=== PATIENT | female | born 1995 | race Caucasian/White ===

== ENCOUNTER → 2020-12-11 16:24 | Outpatient (CLI) | payer OTHER, MEDICAID, SELFPAY ==
[2020-12-12 09:53] LABS: HIV - WCH Non-Reactive (Nonreactive); Hepatitis B Surface Antibody Non-Reactive; Hepatitis C Antibody Non-Reactive (Nonreactive); Syphilis Antibodies Non-reactive
[2020-12-19 08:42] LABS: HPV APTIMA, High Risk Positive (Negative); HPV Reflexed? YES, CHARGE PATIENT
== END ==
PROVIDERS: Visit Provider Obstetrics & Gynecology
DX: Z11.3 Encounter for screening for infections with a predominantly sexual mode of transmission (principal); Z12.4 Encounter for screening for malignant neoplasm of cervix
CPT/HCPCS: 36415; 86703; 86706; 86803; 87624; 88175; G0145

== ENCOUNTER 2022-01-01 10:41 | Outpatient (CLI) | payer MEDICAID, SELFPAY ==
[2022-01-06 21:26] LABS: HPV Reflexed? NOT INDICATED
== END 2022-01-01 23:59 | disposition home or self-care (01) ==
LOC: LABSPEC 10:43
PROVIDERS: Visit Provider Obstetrics & Gynecology
DX: Z12.4 Encounter for screening for malignant neoplasm of cervix (principal)
CPT/HCPCS: 88175; G0145

== ENCOUNTER → 2023-04-05 | Outpatient (CLI) | payer MEDICAID, SELFPAY ==
[2023-04-05 15:47] LABS: Absolute Lymphocyte Count 2.48 X10^3/uL (0.83-4.51); Absolute Neutrophil Count 7.7 X10^3/uL (2.0-7.7); Basophil# 0.06 X10^3/uL; Basophil% 0.5 % (0-1); Eosinophil# 0.06 X10^3/uL; Eosinophils% 0.5 % (0-5); Hematocrit 40.3 % (37-47); Hemoglobin 13.6 g/dL (12.0-15.0); Lymphocyte # 2.48 X10^3/ul (0.83-4.51); Lymphocyte % 22.3 % (19-41); Mean Corp Hgb Conc 33.7 g/dL (32-36); Mean Corpuscular Hgb 30.4 pg (27.0-32.0); Mean Corpuscular Volume 90.2 fL (81-99); Mean Platelet Vol. 10.5 fl (6.2-12.0); Monocyte% 7.2 % (0-10); NRBC Flagged by Analyzer 0 % (0-5); Neutrophil # 7.66 X10^3/uL (2.7-7.7); Neutrophil % 69.1 % (47-70); Platelet Count 307 K/mm3 (150-450); RBC Distribution Width CV 12.1 % (11.6-14.6); Red Blood Count 4.47 M/mm3 (4.2-5.4); White Blood Count 11.1 K/mm3 (4.4-11.0)
[2023-04-05 16:35] LABS: HIV - WCH Non-Reactive (Nonreactive); Hepatitis B Surface Antigen Non-Reactive (Nonreactive); Hepatitis C Antibody Non-Reactive (Nonreactive); Rubella IgG Reactive (Nonreactive); Syphilis Antibodies Non-reactive
[2023-04-07 05:08] LABS: V-Zoster IgG (Immunity) 1560 index (Immune >165)
== END | disposition home or self-care (01) ==
LOC: WOBLAB 14:57
PROVIDERS: Visit Provider Obstetrics & Gynecology
DX: Z34.81 Encounter for supervision of other normal pregnancy, first trimester (principal); Z3A.00 Weeks of gestation of pregnancy not specified
CPT/HCPCS: 36415; 85025; 86703; 86762; 86780; 86787; 86803; 87086; 87340

== ENCOUNTER 2023-11-03 17:22 | Outpatient (CLI) | payer MEDICAID, SELFPAY ==
--- OUTSIDE RECORDS SUMMARY | 2023-11-03 17:32 | XMS RPT_ITS | CCD ---
Author Name Unknown Address [address] [place] [address] Organization [facility] Care Team Providers Care Winch Runner Name Role Phone Tizzano, Justo P Unavailable Unavailable No Doctor Assigned, Nodr Unavailable Unavail able Tizzano, Justo P Unavailable Unavailable Tizzano, Justo P Unavailable Unavailable No Doctor Assigned, Nodr Unavailable Unavail able No Doctor Assigned, Nodr Unavailable Unavail able Ivanauskas, Saulius Unavailable Unavailable Ivanauskas, Saulius Unavailable Unavailable Wagoner, Isak Unavailable Unavailable Wagoner, Isak Unavailable Unavailable No Doctor Assigned, Nodr Unavailable Unavail able Tizzano, Justo P Unavailable Unavailable No Doctor Assigned, Nodr Unavailable Unavail able Tizzano, Justo P Unavailable Unavailable No Doctor Assigned, Nodr Unavailable Unavail able Tizzano, Justo P Unavailable Unavailable Staci Gee Unavailable Unavailable Unavailable Ms. STACI GEE ROGELIO Referring Unavailab jenny GEE, MsRoyal SILVA ROGELIO Attending Unavailab jenny GEE, MsRoyal SILVA ROGELIO Primary Care Unavailab Staci Gaviria Primary Care Provider Unavailable Primary Care Provider Unavailkaren e SWATI MENDOZA Attending Unavail able PLOTTS, DEONNA Attending Unavailable HAALISIA DUTTON Attending Unavailable PLOTTS, DEONNA Attending Unavailable HANATO, ALISIA Referring Unavailable MAIDA GALLO Attending Unavailable AMADEO SORIA Attending Unavailable MARY GAMBLE Attending Unavailable HAURY, ALISIA Referring Unavailable MARZENA FARRIS Attending Unavailable PLOTTS, DEONNA Attending Unavailable PLOTTS, DEONNA Referring Unavailable PLOTTS, DEONNA Attending Unavailable PLOTTS, DEONNA Referring Unavailable Allergies Allergy Classification Reported Allergen(s) Allergy Type Date of Onset Reaction(s) Facility (15 sources) amoxicillin; Translations: [amoxicillin] Drug Allergy 3 Other, Other: See Comments [facility] Repository (15 sources) Penicillins; Translations: [penicillins] Propensity to adverse reactions to drug (disorder) 3 Unknown, Other: See Comments [facility] Repository Medications Current Medications Medication Drug Class(es) Dates Sig (Normalized) Sig (Original) biotin 10 mg oral tablet (4 sources) take 1 tablet by logan th once daily biotin 10 mg tablet Take 1 tablet (10 mg) by mouth once daily. 0 Active Completed/Discontinued Medications Medication Drug Class(es) Dates Sig (Normalized) Sig (Original) BIOTIN, BULK, MISC (9 sources) BIOTIN, BULK, TX SC VIT 6-BZEA-WHBPB-DHA ORAL (9 sources) VIT 0-NYQN-IGHPT-DHA ORAL Take by mouth. 0 Active Problems Active Problems Problem Classification Problem Date Documented Date Episodic/Chronic Allergic reactions (1 source) Allergy to penicillin; Translations: [Allergy status to penicillin] 09-15-2023 Episodic Anxiety disorders (4 sources) Anxiety; Translations: [Anxiety state, unspecified] Onset: 04-22-2023 04-22-2023 Chronic Diabetes mellitus without complication (6 sources) Increased glucose level; Translations: [Other abnormal glucose] Onset: 08-24-2023 08-24-2023 Episodic Disorders of lipid metabolism (2 sources) Hyperlipidemia; Translations: [Other and unspecified hyperlipidemia] Onset: 04-22-2023 04-22-2023 Chronic Lymphadenitis (2 sources) Lymphadenopathy; Translations: [Enlargement of lymph nodes] Episodic Mood disorders (4 sources) Moderate major depression, single episode; Translations: [Major depressive affective disorder, single episode, moderate] Onset: 04-22-2023 04-22-2023 Chronic Other complications of (1 source) Vaginal discharge; Translations: [Other specified related conditions, third trimester] 09-15-2023 Episodic Other female genital disorders (1 source) Vaginal irritation; Translations: [Other specified noninflammatory disorders of vagina] 09-15-2023 Episodic Other and delivery including normal (18 sources) Normal ; Translations: [Encounter for supervision of normal first , second trimester] Onset: 06-14-2023 07-04-2023 Episodic Residual codes; unclassified (1 source) Gestation period, 25 weeks; Translations: [25 weeks gestation of ] 08-02-2023 Episodic Residual codes; unclassified (1 source) Gestation period, 28 weeks; Translations: [28 weeks gestation of ] 08-23-2023 Episodic Residual codes; unclassified (2 sources) Gestation period, 32 weeks; Translations: [32 weeks gestation of ] 09-15-2023 Episodic Residual codes; unclassified (1 source) 36 weeks gestation of ; Translations: [36 weeks gestation of ] Onset: 10-18-2023 Episodic Residual codes; unclassified (1 source) 25 weeks gestation of ; Translations: [25 weeks gestation of ] Onset: 08-23-2023 Episodic Unclassified (1 source) No additional problems on file Viral infection (4 sources) Human papilloma virus infection; Translations: [Human papillomavirus in conditions classified elsewhere and of unspecified site] Onset: 04-22-2023 04-22-2023 Episodic Past or Other Problems Problem Classification Problem Date Documented Date Episodic/Chronic Contraceptive and procreative management (5 sources) Patient encounter status; Translations: [Other general counseling and advice on contraceptive management] Resolved: 06-11-2021 Episodic Residual codes; unclassified (3 sources) Past history of procedure; Translations: [Other postprocedural status] Onset: 12-08-2020 Episodic Results Test Name Value Interpretation Reference Range Facil ity Vital Signs Date Time Vital Sign Value Performing Clinician Joann damon 09-21-2023 14:56-0500 Body height 170.2 cm Maida Gallo MD Work Phone: [facility] 09-21-2023 14:40-0500 Body weight 84.37 kg Maida Gallo MD Work Phone: [facility] 09-21-2023 14:40-0500 Diastolic blood pressure 60 mm[Hg] Maida Gallo MD Work Phone: [facility] 09-21-2023 14:40-0500 Systolic blood pressure 122 mm[Hg] Maida Gallo MD Work Phone: [facility] 09-15-2023 13:51-0500 Body weight 84.82 kg Alisia Reyes APRN.CNP Work Phone: [facility] 09-15-2023 13:51-0500 Diastolic blood pressure 60 mm[Hg] Alisia Amy VENEER JOINTER HELPER.CLOTHING CUTTER Work Phone: [facility] 09-15-2023 13:51-0500 Systolic blood pressure 124 mm[Hg] Alisia Amy VENEER JOINTER HELPER.CLOTHING CUTTER Work Phone: [facility] 08-23-2023 08:05-0500 Body weight 83.92 kg Swati Ho MD Work Phone: [facility] 08-23-2023 08:05-0500 Diastolic blood pressure 60 mm[Hg] Swati Ho MD Work Phone: [facility] 08-23-2023 08:05-0500 Systolic blood pressure 114 mm[Hg] Swati Ho MD Work Phone: [facility] 08-02-2023 16:35-0400 Body weight 81.38 kg Deonna Plotts VENEER JOINTER HELPER.CNM Work Phone: [facility] 08-02-2023 16:35-0400 Diastolic blood pressure 62 mm[Hg] Deonna Plotts VENEER JOINTER HELPER.CNM Work Phone: [facility] 08-02-2023 16:35-0400 Systolic blood pressure 114 mm[Hg] Deonna Plotts VENEER JOINTER HELPER.CNM Work Phone: [facility] 07-04-2023 13:05-0400 Body weight 78.29 kg Deonna Plotts VENEER JOINTER HELPER.CNM Work Phone: [facility] 07-04-2023 13:05-0400 Diastolic blood pressure 64 mm[Hg] Deonna Plotts VENEER JOINTER HELPER.CNM Work Phone: [facility] 07-04-2023 13:05-0400 Systolic blood pressure 118 mm[Hg] Deonna Plotts VENEER JOINTER HELPER.CNM Work Phone: [facility] 04-22-2023 14:55-0400 Body height 170.2 cm Staci Walker VENEER JOINTER HELPER-CLOTHING CUTTER Work Phone: [facility] 04-22-2023 14:55-0400 Body mass index (BMI) [Ratio] 26.63 kg/m2 Staci Walker VENEER JOINTER HELPER-CLOTHING CUTTER Work Phone: [facility] 04-22-2023 14:55-0400 Body weight 77.11 kg Staci Walker VENEER JOINTER HELPER-CLOTHING CUTTER Work Phone: [facility] 04-22-2023 14:55-0400 Diastolic blood pressure 74 mm[Hg] Staci Walker VENEER JOINTER HELPER-CLOTHING CUTTER Work Phone: [facility] 04-22-2023 14:55-0400 Heart rate 74 /min Staci Walker VENEER JOINTER HELPER-CLOTHING CUTTER Work Phone: [facility] 04-22-2023 14:55-0400 Systolic blood pressure 118 mm[Hg] Staci Walker VENEER JOINTER HELPER-CLOTHING CUTTER Work Phone: [facility] 07-09-2021 13:53-0400 Body height 170.18 cm Staci Gee Work Phone: [facility] Work Phone: 07-09-2021 13:53-0400 Body mass index (BMI) [Ratio] 25.69 kg/m2 Staci Gee Work Phone: [facility] Work Phone: 07-09-2021 13:53-0400 Body surface area Derived from formula 1.86 m2 Staci Gee Work Phone: [facility] Work Phone: 07-09-2021 13:53-0400 Body weight 74.39 kg Staci Gee Work Phone: [facility] Work Phone: 07-09-2021 13:53-0400 Diastolic blood pressure 68 mm[Hg] Staci Gee Work Phone: [facility] Work Phone: 07-09-2021 13:53-0400 Heart rate 76 /min Staci Jose SummersGee Work Phone: [facility] Work Phone: 07-09-2021 13:53-0400 SaO2% (BldA) [Mass fraction] 99 % Staci D Gee Work Phone: [facility] Work Phone: 07-09-2021 13:53-0400 Systolic blood pressure 120 mm[Hg] Staci D Gee Work Phone: [facility] Work Phone: 06-11-2021 13:49-0400 Body height 170.18 cm Staci Jose Gee Work Phone: [facility] Work Phone: 06-11-2021 13:49-0400 Body mass index (BMI) [Ratio] 25.69 kg/m2 Staci Jose SummersGee Work Phone: [facility] Work Phone: 06-11-2021 13:49-0400 Body surface area Derived from formula 1.86 m2 Staci Jose SummersGee Work Phone: [facility] Work Phone: 06-11-2021 13:49-0400 Body weight 74.39 kg Staci Jose SummersGee Work Phone: [facility] Work Phone: 06-11-2021 13:49-0400 Diastolic blood pressure 74 mm[Hg] Staci D Gee Work Phone: [facility] Work Phone: 06-11-2021 13:49-0400 Heart rate 76 /min Staci D Gee Work Phone: [facility] Work Phone: 06-11-2021 13:49-0400 Systolic blood pressure 124 mm[Hg] Staci D Gee Work Phone: [facility] Work Phone: Encounters Encounter Date Encounter Type Care Provider Facility Start: 10-26-2023 End: 10-26-2023 ambulatory DEONNA BETSYJULIA Facility:[facility] Start: 10-18-2023 End: 10-19-2023 ambulatory MARZENA FARRIS Facility:[facility] Start: 10-13-2023 End: 10-13-2023 ambulatory MARY GAMBLE Facility:[facility] Start: 10-11-2023 End: 10-11-2023 ambulatory AMADEO SORIA Facility:[facility] Start: 10-06-2023 End: 10-06-2023 ambulatory DEONNA REDD Facility:[facility] Start: 09-21-2023 End: 09-21-2023 ambulatory ALISIA REYES Facility:[facility] Start: 09-21-2023 End: 09-21-2023 Patient encounter procedure Maida Gallo MD Work Phone: OB/Gynecology Procedures Date Procedure Procedure Detail Performing Clinician Start: 09-21-2023 URINE OB DIP B/O Charly Gallo MD Work Phone: Start: 09-15-2023 URINE OB DIP B/O Alisia Reyes VENEER JOINTER HELPER.CLOTHING CUTTER Work Phone: Start: 08-23-2023 URINE OB DIP B/O Swati Ho MD Work Phone: Start: 08-02-2023 Urnls dip stick/tabl et rgnt auto w/o microscopy Deonna Redd VENEER JOINTER HELPER.CNM Work Phone: Start: 04-05-2023 CBC panel - Blood by Automated count [facility] Provider Start: 04-05-2023 GONORRHEA/CHLAMYDIA NAAT [facility] Provider Start: 04-05-2023 HEP B SURF AG SCRN [facility] Provider Start: 04-05-2023 HEPATITIS C ANTIBODY IA WITH CONFIRMATION [facility] Provider Start: 04-05-2023 HIV 1 2 COMBO(AG/AB) ,WITH REFLEX TO DIFFERENTIATION [facility] Provider Start: 04-05-2023 RUBELLA IGG AB [facility] Prov ider Start: 04-05-2023 SYPHILIS TOTAL W/REFLEX [facility] Provider Start: 06-18-2021 Lipid 1996 panel - S suresh or Plasma Staci WANG Work Phone: Start: 10-10-2013 Operative procedure on knee Staci Garcia Gee Work Phone: Plan of Treatment Date Care Activity Detail Author Start: 2047 Zoster Vaccines (1 o f 2) Zoster Vaccines (1 of 2) [facility] Start: 06-18-2026 Lipid panel Lipid Panel [facility] Start: 04-23-2024 Yearly Adult Physical Yearly Adult P hysical [facility] Start: 09-15-2023 RSV Vaccine (1 - Ris k 1-dose series) RSV Vaccine (1 - Risk 1-dose series) [facility] Start: 08-23-2023 End: 08-23-2024 OBSTETRIC ULTRASOUND [facility] OBSTETRIC ULTRASOUND [facility] Anc Imaging Routine 28 weeks gestation of with care elsewhere in third trimester Expected: 08/23/2023, Expires: 08/23/2024 [facility] Work Phone: Immunizations Immunization Date Immunization Notes Care Provider Fa cili 07-22-2022 Influenza, injectabl e, Madin Heidi Canine Kidney, preservative free, quadrivalent Staci WANG Work Phone: [facility] Work Phone: 07-22-2022 influenza virus vaccine, unspecified formulation Staci WANG Work Phone: [facility] Work Phone: 04-01-2022 tuberculin skin test ; purified protein derivative solution, intradermal Staci WANG Work Phone: [facility] Work Phone: 04-18-2002 diphtheria, tetanus toxoids and acellular pertussis vaccine, unspecified formulation Staci WANG Work Phone: [facility] Work Phone: 04-18-2002 poliovirus vaccine, unspecified formulation Staci Walker APRN-CLOTHING CUTTER Work Phone: [facility] Work Phone: 07-04-2000 haemophilus influenz ae type b vaccine, conjugate unspecified formulation Staci Walker APRN-CLOTHING CUTTER Work Phone: [facility] Work Phone: 04-07-1999 diphtheria, tetanus toxoids and acellular pertussis vaccine, unspecified formulation Staci Walker APRN-CLOTHING CUTTER Work Phone: [facility] Work Phone: 04-07-1999 haemophilus influenz ae type b vaccine, HbOC conjugate Staci Walker APRN-CLOTHING CUTTER Work Phone: [facility] Work Phone: 06-20-1998 diphtheria, tetanus toxoids and acellular pertussis vaccine, unspecified formulation Staci Walker APRN-CLOTHING CUTTER Work Phone: [facility] Work Phone: 06-20-1998 hepatitis B vaccine, pediatric or pediatric/adolescent dosage Staci Walker APRN-CLOTHING CUTTER Work Phone: [facility] Work Phone: 01-26-1998 diphtheria, tetanus toxoids and acellular pertussis vaccine, unspecified formulation Staci Walker APRN-CLOTHING CUTTER Work Phone: [facility] Work Phone: 01-16-1998 diphtheria, tetanus toxoids and acellular pertussis vaccine, unspecified formulation Staci Walker APRN-CLOTHING CUTTER Work Phone: [facility] Work Phone: 01-16-1998 haemophilus influenz ae type b vaccine, conjugate unspecified formulation Staci Walker APRN-CLOTHING CUTTER Work Phone: [facility] Work Phone: 1995 diphtheria, tetanus toxoids and acellular pertussis vaccine, unspecified formulation Staci Aaron FRANKN-CLOTHING CUTTER Work Phone: [facility] Work Phone: 1995 haemophilus influenz ae type b vaccine, conjugate unspecified formulation Staci Walker VENEER JOINTER HELPER-CLOTHING CUTTER Work Phone: [facility] Work Phone: 1995 hepatitis B vaccine, pediatric or pediatric/adolescent dosage Staci Packerkaren LEW-CLOTHING CUTTER Work Phone: [facility] Work Phone: 1995 hepatitis B vaccine, pediatric or pediatric/adolescent dosage Staci Walker APRN-CLOTHING CUTTER Work Phone: [facility] Work Phone: Payers Date Payer Category Payer Medicaid [place] [employer] [place] [employer] [id number] 2023-Present [phone] [place] [id number] Medicaid [id number] 2023 Medicaid [id number] 2021 Unknown [id number] 2017 Unknown 1995 Unknown [id number] Social History Date Type Detail Facility Start: 04-22-2023 End: 08-23-2023 Never smoked tobacco Never smoked tobacco [facility] Work Phone: Start: 04-22-2023 End: 06-14-2023 Tobacco smoking status NHIS Never smoked tobacco [facility] Work Phone: Start: 04-22-2023 End: 06-14-2023 Tobacco use and exposure Smokeless tobacco non-user [facility] Work Phone: Start: 04-22-2023 Alcohol intake Lifetime non-drinker (finding) [facility] Work Phone: Start: 04-22-2023 End: 08-23-2023 Tobacco use panel [facility] Work Phone: Start: 1995 Sex Assigned At Not on file [facility] Work Phone: Start: 04-12-2023 End: 04-22-2023 Exposure to SARS-CoV-2 (event) Not sure [facility] Tobacco smoking stat us NHIS Tobacco smoking consumption unknown [facility] Start: 07-04-2023 End: 09-21-2023 Alcohol intake Ex-drinker (finding) [facility] National Score (1-10 0), lower number is lower risk 87 [facility] Start: 06-14-2023 Education 16 [facility] Start: 02-17-2023 [facility] Start: 1995 Sex Assigned At Female [facility] Start: 06-14-2023 Gender identity Identifies as female gender (finding) [facility] Start: 06-14-2023 Sexual orientation Heterosexual (finding) [facility] Goals Date Patient Goal Desired Activity /State Personal health goal Clinical Notes 04-22-2023 to 11-01-2023 Quick Notes - Maida Gallo MD - 09/21/2023 2:56 PM ESTPatient InstructionsTelephone Encounter - Nicolette Tarango RN - 09/19/2023 9:14 AM ESTPatient InstructionsPatient Instructions Note Date & Type Note Facility 11-01-2023 Note HNO ID: [id number] Author: ?, ?, ? Service: ? Author Type: ? Type: Progress Notes Filed: 11/01/2023 13:45 Note Text: POPULATION HEALTH NAVIGATION OUTREACH Action/I 3rd attempt- Called and spoke to patient and updated OB/PEDS field to patient's perferred garment patternmaker. Patient thanked me for calling her. OB/PEDS Patient Identified by Name and : YES, via phone Outreach Outcome/Action OB/PEDS field updated Did you use a PCP flex slot to schedule this appointment? N/A Navigation Signature: Brenda Galloway November 01, 2023 1:43 PM [facility] 10-28-2023 Note HNO ID: [id number] Author: ?, ?, ? Service: ? Author Type: ? Type: Progress Notes Filed: 10/28/2023 14:28 Note Text: POPULATION HEALTH NAVIGATION OUTREACH Action/FYI Called and phone cell went directly into voicemail. Voicemail is full cannot leave a message. Mychart message sent OB/PEDS Patient Identified by Name and : NO Outreach Outcome/Action Unable to reach patient: Phone number not valid / voicemail full MyChart message sent Did you use a PCP flex slot to schedule this appointment? N/A Reason for Outreach [place] Payer: Payor: [place] [employer] / Plan: [facility] MEDICAID / Product Type: Medicaid / Care Gap Reviewed:: N/A Reminder: Reminder note to check Health Maintenance for items below Health Maintenance items due: Covid-19 Vaccine(1) Never done HPV Vaccine(1 - 2-dose series) Never done DTaP,Tdap,Td Vaccine(6 - Tdap) due on 2008 Pap Testing Never done Influenza Vaccine(1) due on 06/10/2023 Depression Assessment Never done Navigation Signature: Brenda Galloway October 28, 2023 2:27 PM [facility] 10-28-2023 Note Patient Outreach (NE TNAV) JOSE RAFAEL LOPEZ ([id number]) 1995 F Date Time Provider Department 10/28/23 BRENDA THORPE) NELSON During your visit today, we recorded the following information about you: Brenda Ponce 10/28/2023 2:28 PM Signed POPULATION HEALTH NAVIGATION OUTREACH Action/FYI Called and phone cell went directly into voicemail. Voicemail is full cannot leave a message. Mychart message sent OB/PEDS Patient Identified by Name and : NO Outreach Outcome/Action Unable to reach patient: Phone number not valid / voicemail full MyChart message sent Did you use a PCP flex slot to schedule this appointment? N/A Reason for Outreach [place] Payer: Payor: [place] / Plan: [facility] MEDICAID / Product Type: Medicaid / Care Gap Reviewed:: N/A Reminder: Reminder note to check Health Maintenance for items below Health Maintenance items due: Covid-19 Vaccine(1) Never done HPV Vaccine(1 - 2-dose series) Never done DTaP,Tdap,Td Vaccine(6 - Tdap) due on 2008 Pap Testing Never done Influenza Vaccine(1) due on 06/10/2023 Depression Assessment Never done Navigation Signature: Brenda Galloway October 28, 2023 2:27 PM Brenda Ponce 11/01/2023 1:45 PM Signed POPULATION HEALTH NAVIGATION OUTREACH Action/FYI 3rd attempt- Called and spoke to patient and updated OB/PEDS field to patient's perferred garment patternmaker. Patient thanked me for calling her. OB/PEDS Patient Identified by Name and : YES, via phone Outreach Outcome/Action OB/PEDS field updated Did you use a PCP flex slot to schedule this appointment? N/A Navigation Signature: Brenda Galloway November 01, 2023 1:43 PM Allergies As of Date: 10/28/2023 (No Known Allergies) Date Reviewed: 10/26/2023 Reviewed by: April Longo LPN - Fully Assessed Reason for Visit: Population Health Navigation Outreach [3910] Cmt: OB/PEDS Prescriptions as of 11/01/2023 - famotidine (PEPCID) 20 mg tablet Take 1 tablet by mouth two times a day. - BIOTIN, BULK, MISC - VIT 8-OYSY-XLUMF-DHA ORAL Take by mouth. Problem List As Of Date 10/28/2023 Noted Resolved with care elsewhere, antepar*06/14/2023 History of depression [Z86.59] 06/14/2023 Family history of congenital heart defect [Z82.*06/14/2023 Family history of Down syndrome [Z82.79] 06/14/2023 Elevated glucose [R73.09] 08/24/2023 Encounter Status:Closed by BRENDA PONCE on 10/28/23 [facility] 10-13-2023 Note HNO ID: [id number] Author: MARY GAMBLE MD Service: ? Author Type: Physician Type: Progress Notes Filed: 10/15/2023 09:25 Note Text: This is a consultation requested by Alisia Delgadillo APRN, TALON for an allergy and immunology evaluation. My final recommendations will be communicated back to the requesting healthcare provider(s) by way of shared medical record or via [place] mail. Jose Rafael Lopez is a 28 year old female who presents for further evaluation of possible allergy to penicillin type antibiotics. She believes she developed a skin rash associated with use of amoxicillin as a child. Further details regarding the reaction are unknown. Patient does not believe she experienced any severe symptoms such as respiratory distress, bullous lesions or mucous membrane involvement. Denies subsequent use of penicillin or cephalosporin antibiotics. She complains of nasal congestion, red itchy and watery eyes occurring in the spring and when exposed to cats. Takes Benadryl as needed with relief. Not interested in allergy testing to inhalant allergens at this time. Currently 36 weeks REVIEW OF SYSTEMS: SINUSITIS: The patient does not suffer from frequent sinopulmonary infections. ASTHMA: The patient has no history of asthma. ECZEMA: The patient has no history of eczema. URTICARIA:The patient does not have a history of urticaria and/or angioedema. GERD: Occasional GERD symptoms associated with current INSECT STING: The patient does not have a history of systemic reaction to insect sting. FOOD ALLERGY:The patient denies history of food allergy. LATEX: The patient does not have a history of adverse reaction to latex. All other review of systems negative except for those listed above. PAST MEDICAL HISTORY Diagnosis Date Abnormal Pap smear of cervix ASCUS +HPV Depression/anxiety MEDICATIONS: BIOTIN, BULK, MISC VIT 0-WEGE-[id number]-DHA ORAL Take by mouth. ALLERGIES: Allergies As of Date: 10/13/2023 Allergen Noted Reaction AMOXICILLIN 06/14/2023 Other: See Comments PENICILLINS 06/14/2023 Other: See Comments Fully Assessed 10/13/2023 PAST SURGICAL HISTORY Procedure Laterality Date PAST SURGICAL HISTORY OF Left ACL FAMILY HISTORY: Allergic rhinitis:no. Asthma: no. Eczema: no. Cystic fibrosis: no. Immunodeficiency: no. SOCIAL HISTORY: Employer And Job Title: None on file Years Of Education Completed: Not specified Marital Status: other Social History Tobacco Use Smoking status: Never Smokeless tobacco: Never ENVIRONMENTAL HISTORY: Lives in a house Age of home: 62 years Heating: fuel oil Woodburning fireplace in the home: no Air conditioning: Window air conditioning Basement: Damp basement Bekah: [id number] carpeting Dust mite controls: Dust mite controls are not in place. Pets in the home: 1 dogs Outdoor animals: There are no outdoor animals Tobacco smoke: No exposure in the home. Physical Exam: GENERAL APPEARANCE:Well appearing, alert, in no acute distress, well-hydrated, well nourished. HEENT: NCAT. EYES: conjunctiva and sclera normal. EARS: External ears normal. Canals clear. TM's normal. NOSE/SINUS: Nares normal. Septum midline. Mucosa normal. No drainage or sinus tenderness. THROAT: no erythema NECK:neck supple, no adenopathy HEART:RRR with normal S1 and S2 ,no murmurs, no gallops, no rubs LUNGS: clear to auscultation bilaterally, no wheezes, rales or rhonchi ABDOMEN: gravid EXTREMITIES:Extremities normal, No deformities, No skin discoloration, and No edema SKIN: Skin color, texture, turgor normal. No rashes or lesions. ALLERGY SKIN TESTS: Negative to penicillin and Pre-Pen on both prick and intradermal tests. Patient took amoxicillin 50 mg by mouth and was monitored in the office for 30 minutes afterwards. She then took 200 mg by mouth and was monitored for 40 minutes afterwards the patient tolerated the amoxicillin without adverse reaction. ASSESSMENT/PLAN: 1.) History of allergy to penicillin and/or penicillin-type antibiotic: Allergy skin tests to penicillin were negative. The patient completed a graded in office challenge to amoxicillin and tolerated this without adverse reaction. The patient is at low risk for a severe, immediate, IgE-mediated reaction to penicillin, amoxicillin and other penicillin-type antibiotics. Skin tests and oral challenges are unreliable for predicting delayed reactions. 2.) Probable allergic rhinitis Patient declined the completion of allergy skin tests to inhalant allergens as her symptoms are relatively mild. The patient may also take oavu-pnr-buuomen loratidine (Claritin) 10 mg, cetirizine (Zyrtec) 10 mg, levocetirizine (xyzal) 5 mg OR fexofenadine (Mia) 180 mg once daily as needed for itching, sneezing or runny nose. 3.) Discussed medication dosage, usage, side effects, and goals of treatment in detail. 4.) Follow-up in PRN - patient will r (more content not included)... [facility] 10-06-2023 Note HNO ID: [id number] Author: Deonna Redd APRN.CNM Service: ? Author Type: Mobile Ui Developer Type: Progress Notes Filed: 10/06/2023 4:17 PM Note Text: NST SUMMARY PROVIDER ASSESSMENT AND INTERPRETATION Jose Rafael Lopez is a 28 year old female, , who is at 35w0d with an ORESTES of 11/10/2023, by Ultrasound dating method. Indications for NST: Fall Baseline: 140 Variability: Moderate Accelerations: Present 15 X 15 Decelerations: None Contractions: TOCO: Occasional Interpretation: Category I and Reactive SIGNATURE: Deonna Redd APRN.CNM [facility] 09-21-2023 Miscellaneous Notes RR- VB No. LOF No. CTXS No. Movement: present. Other c/o: No. Medication list reviewed. Physical Exam See Flow Sheet Abd: soft, nontender, gravid Ext: edema: Trace A/P 32w6d Estimated Date of Delivery: 11/10/23 super norm. first reviewed tdap and rsv vaccines and recommendations. declines today f/u in 2 weeks or prn Maida Gallo M.D. documented in this encounter [facility] 09-21-2023 Instructions Brenda Richards MA - 09/21/2023 2:10 PM EST SEQUENTIAL SCREENINGS The [facility] offers sequential screenings for women who are interested in screenings for chromosomal abnormalities and certain defects during a . The sequential screen combines ultrasound and blood tests to determine the risk of chromosomal abnormalities, including Down's Syndrome (Trisomy 21) and Trisomy 18, as well as open neural tube defects including spina bifida. Ultrasound examination is performed between 11 weeks and 13 weeks gestational age. Blood tests are drawn after the ultrasound and again later in the between 15 and 21 weeks gestational age. Please let your physician know if you are interested in this testing. It will require an appointment with our automatic equipment technician. This is not an ultrasound performed by a physician in our office during a routine visit. SIGNS AND SYMPTOMS OF LABOR 1. Contractions every 10 minutes or more often 2. Clear, pink, or brownish fluid (water) leaking from vagina 3. Feeling that baby is pushing down, pressure 4. Low, dull backache 5. Cramps that feel like a period 6. Cramps with or without diarrhea If you notice any of the above symptoms, contact our office at [phone] and ask to speak with a nurse. After hours, you can call doctors registry at [phone] OR call [facility] at [phone] and ask to have the doctor incident response manager paged. If you consider this an emergency, dial 8-5-7 or go to your nearest emergency department. NEED HELP? Are you dealing with a violent or abusive relationship? Are you a victim of rape or sexual assult? Call [facility] ([place]) 24 hour Crisis Hotline: 147.674.6614 or 692-799-5666. MANUAL Your Guide to a Healthy manual is now on-line. Visit [email or web address] to download your free copy documented in this encounter [facility] 09-19-2023 Miscellaneous Notes Patient notified and voiced understanding. Nicolette Tarango RN Please notify patient: Positive for yeast. Recommend Monistat 7 for treatment. Alisia Reyes APRN.TALON documented in this encounter [facility] 09-15-2023 Miscellaneous Notes S: Jose Rafael is a 28 year old female who presents at 32w0d for problem visit of vaginal discharge and itching. Feels that she may have a yeast infection. Feeling movement. Denies headache, visual changes, chest pain, shortness of breath, vaginal bleeding, leakage of fluid, or dysuria. 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: Negative for abnormal vaginal bleeding + vaginal discharge and itching Allergies and current medication updated:Yes EXAM: BP 124/60 Wt 187 lb (84.8kg) LMP 02/04/2023 GENERAL: pleasant, female in no apparent distress HEENT: Normocephalic, atraumatic, mucus membranes moist, and no lesions NECK: Supple, full range of motion, no adenopathy, and thyroid normal CHEST: Normal inspiratory effort ABDOMEN: soft, non-tender, and no masses PELVIC: external genitalia normal, normal Bartholin's glands, urethra, [place]'s glands, no vulvar lesions, no cervical lesions, good vaginal support, physiologic discharge present, normal appearing perineal body and perianal region + thick white discharge noted BIMANUAL: uterus normal size, shape and consistency, no adnexal masses, and non-tender NEURO: alert and oriented x3,exam grossly non-focal EXTREMITIES: normal ASSESSMENT/PLAN: Encounter for supervision of normal first in third trimester - ICD9: V22.0, ICD10: Z34.03 (primary diagnosis) - PTL information provided 32 weeks gestation of - ICD9: V22.2, ICD10: Z3A.32 - Declines TDAP and flu vaccine - 3 hour WNL Vaginal discharge during in third trimester - ICD9: 646.83, 623.5, ICD10: O26.893, N89.8 Vaginal irritation - ICD9: 623.9, ICD10: N89.8 - URINE OB DIP B/O - BEATRICE/TRICHOMONAS NAAT - BACTERIAL VAGINOSIS NAAT - Recommend Monistat 7 Penicillin allergy - ICD9: V14.0, ICD10: Z88.0 - CONSULT TO PENICILLIN ALLERGY RTO for appointment as scheduled. Will consult with physician on why 32 week ultrasound was recommended to determine if patient needs. Alisia Reyes APRN.CNP Medical Decision Making: Problems: Moderate: New problem with uncertain prognosis Data: Unique test(s) ordered: 2 Risk: Low: Low risk from testing/treatment Moderate: Drug management Medical Decision Making Level: 4 - Moderate documented in this encounter [facility] 09-15-2023 Instructions Ellie Obregon Ma - 09/15/2023 1:54 PM EST SEQUENTIAL SCREENINGS The [facility] offers sequential screenings for women who are interested in screenings for chromosomal abnormalities and certain defects during a . The sequential screen combines ultrasound and blood tests to determine the risk of chromosomal abnormalities, including Down's Syndrome (Trisomy 21) and Trisomy 18, as well as open neural tube defects including spina bifida. Ultrasound examination is performed between 11 weeks and 13 weeks gestational age. Blood tests are drawn after the ultrasound and again later in the between 15 and 21 weeks gestational age. Please let your physician know if you are interested in this testing. It will require an appointment with our automatic equipment technician. This is not an ultrasound performed by a physician in our office during a routine visit. SIGNS AND SYMPTOMS OF LABOR 1. Contractions every 10 minutes or more often 2. Clear, pink, or brownish fluid (water) leaking from vagina 3. Feeling that baby is pushing down, pressure 4. Low, dull backache 5. Cramps that feel like a period 6. Cramps with or without diarrhea If you notice any of the above symptoms, contact our office at [phone] and ask to speak with a nurse. After hours, you can call doctors registry at [phone] OR call [facility] at [phone] and ask to have the doctor incident response manager paged. If you consider this an emergency, dial 9-1-8 or go to your nearest emergency department. NEED HELP? Are you dealing with a violent or abusive relationship? Are you a victim of rape or sexual assult? Call [facility] ([place]) 24 hour Crisis Hotline: 372.973.4640 or 938-850-8738. MANUAL Your Guide to a Healthy manual is now on-line. Visit [email or web address] to download your free copy documented in this encounter [facility] 09-14-2023 Miscellaneous Notes Patient notified. Scheduled her an appointment for tomorrow. Destiny Pfeiffer RN I would recommend appointment for testing due to . And unfortunately during I only recommend vaginal treatment as Diflucan the oral preparation is not recommended. Please let me know if she has any questions.Amadeo Soria APRN.CNM 31w5d C/o yeast infection symptoms of vaginal itching and cottage cheese like discharge. Has gotten yeast infections in the past. Advised to use Monistat 7, but she is questioning if there is another oral option she can take instead. Nicole Hannah RN documented in this encounter [facility] 08-25-2023 Note HNO ID: [id number] Author: Destiny Pfeiffer RN Service: ? Author Type: ? Type: Progress Notes Filed: 08/25/2023 8:01 AM Note Text: Breast pump RX faxed to [facility]. Destiny Pfeiffer RN [facility] 08-25-2023 History of Presen t illness Narrative Breast pump RX faxed to [facility] [facility]. Destiny Pfeiffer RN documented in this encounter [facility] 08-23-2023 Miscellaneous Notes DM-Pt doing well. Denies vaginal Bleeding, Leaking fluid, or regular Contractions. Pt reports good movement Physical Exam: Gen: female in no apparent distress Abd: soft, Gravid. Non tender to palpation. See flow sheet A/P: @ 28.5 weeks 1) 28 week labs today 2) considering TDAP at next appt. 3) Declines Flu vaccine today - will consider for next visit 4) LARC form signed and declined today 5) RTO 2 wks Swati Jasso MD documented in this encounter [facility] 08-23-2023 Instructions Gisela Cedillo Ma 08/23/2023 8:02 AM EST SEQUENTIAL SCREENINGS The [facility] offers sequential screenings for women who are interested in screenings for chromosomal abnormalities and certain defects during a . The sequential screen combines ultrasound and blood tests to determine the risk of chromosomal abnormalities, including Down's Syndrome (Trisomy 21) and Trisomy 18, as well as open neural tube defects including spina bifida. Ultrasound examination is performed between 11 weeks and 13 weeks gestational age. Blood tests are drawn after the ultrasound and again later in the between 15 and 21 weeks gestational age. Please let your physician know if you are interested in this testing. It will require an appointment with our automatic equipment technician. This is not an ultrasound performed by a physician in our office during a routine visit. SIGNS AND SYMPTOMS OF LABOR 1. Contractions every 10 minutes or more often 2. Clear, pink, or brownish fluid (water) leaking from vagina 3. Feeling that baby is pushing down, pressure 4. Low, dull backache 5. Cramps that feel like a period 6. Cramps with or without diarrhea If you notice any of the above symptoms, contact our office at [phone] and ask to speak with a nurse. After hours, you can call doctors registry at [phone] OR call [facility] at [phone] and ask to have the doctor incident response manager paged. If you consider this an emergency, dial 9-1-1 or go to your nearest emergency department. NEED HELP? Are you dealing with a violent or abusive relationship? Are you a victim of rape or sexual assult? Call [facility] ([facility] 24 hour Crisis Hotline: 639.905.7013 or 058-053-6460. MANUAL Your Guide to a Healthy manual is now on-line. Visit [email or web address] to download your free copy documented in this encounter [facility] 08-02-2023 Miscellaneous Notes Jose Rafael Lopez is a 27 year old female who presents at 25w5d for a routine visit. Good movement. Denies headache, visual changes, chest pain, shortness of breath, vaginal bleeding, leakage of fluid, or dysuria. Increased urinary urgency and frequency. Denies dysuria. Mild cramping with increased activity. Reviewed hydration and rest. Size equal to dates. 4 lbs TWG. PTL precautions reviewed. RTC in 3 weeks for ALICJA with GCT. Deonna Redd APRN.CNM documented in this encounter [facility] 08-02-2023 Instructions Joey Black Cma - 08/02/2023 4:34 PM EDT SEQUENTIAL SCREENINGS The [facility] offers sequential screenings for women who are interested in screenings for chromosomal abnormalities and certain defects during a . The sequential screen combines ultrasound and blood tests to determine the risk of chromosomal abnormalities, including Down's Syndrome (Trisomy 21) and Trisomy 18, as well as open neural tube defects including spina bifida. Ultrasound examination is performed between 11 weeks and 13 weeks gestational age. Blood tests are drawn after the ultrasound and again later in the between 15 and 21 weeks gestational age. Please let your physician know if you are interested in this testing. It will require an appointment with our automatic equipment technician. This is not an ultrasound performed by a physician in our office during a routine visit. SIGNS AND SYMPTOMS OF LABOR 1. Contractions every 10 minutes or more often 2. Clear, pink, or brownish fluid (water) leaking from vagina 3. Feeling that baby is pushing down, pressure 4. Low, dull backache 5. Cramps that feel like a period 6. Cramps with or without diarrhea If you notice any of the above symptoms, contact our office at [phone] and ask to speak with a nurse. After hours, you can call [facility] at [phone] OR call [facility] at [phone] and ask to have the doctor incident response manager paged. If you consider this an emergency, dial 06-10- or go to your nearest emergency department. NEED HELP? Are you dealing with a violent or abusive relationship? Are you a victim of rape or sexual assult? Call [facility] ([place]) 24 hour Crisis Hotline: 778.360.8150 or 431-233-8438. MANUAL Your Guide to a Healthy manual is now on-line. Visit [email or web address] to download your free copy documented in this encounter [facility] 07-07-2023 Miscellaneous Notes 1st risk assessment form submitted 07/07/23 Nevin Curtis RN documented in this encounter [facility] 07-04-2023 Note HNO ID: [id number] Author: Deonna Redd APRN.MISBAH Service: ? Author Type: Mobile Ui Developer Type: Progress Notes Filed: 07/04/2023 2:23 PM Note Text: INITIAL OB ASSESSMENT OB Provider: Deonna Redd APRN CNM HPI: Jose Rafael is a 27 year old White here to establish Obstetrical Care. Patient's last menstrual period was 02/15/2023 (exact date). from OB Dating Form. Cycles irregular was unplanned but accepted Transfer of care from [place] Complaints: None OB History T0 L0 SAB0 IAB0 Ectopic0 Multiple0 Live Births0 Patient's Risk Screening for delivery: Have you had a prior kamara between 20w and 36w6d?: No MEDICAL/PSYCHOSOCIAL HISTORY: History of hemorrhage or bleeding concerns: No Thyroid Disease: No History of chronic hypertension: No History of pre-existing diabetes: No No results found for: ABORHD No weight on file for this encounter. History of abnormal pap: Yes Prior treatment for cervical dysplasia: none. 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 I don't have enough money to pay my bills: Never Within the past 12 months, have you worried that your food would run out before you had money to buy more: Never In the past 12 months, has lack of reliable transportation kept you from going to medical appointments or work, or from keeping things needed for daily living: Never In the past 12 months, have you had any concerns about having a place to live, or about the condition or quality of your housing: Never Are there any cultural or spiritual needs we should be aware of: No Depression: denies symptoms of depression. OB Depression and Anxiety Screening- This Encounter (since 06/13/2023) Over the past 2 weeks have you felt down, depressed, or hopeless? Negative Over the past two weeks, have you felt little interest or pleasure in doing things?? Negative Feeling nervous, anxious or on edge 2-More than half the days Not being able to stop or control worrying 0-Not al all Anxiety Pre-Screening Total (If >/= 3 additional questions will be reviewed) 2 GENETIC SCREENING: Partner present: No Patient verbalized knowledge of partner family health history: No -not sure she knoiws complete history Do you or your partner have any personal or family history of defects not previously discussed: No Do you have history of a complicated by anomaly, genetic condition, or demise: No Marital Status:engaged Partner: Name: Joe Everett Age: 25 Occupation: mechanical product engineer Gender: Male History of STDs: None PAST MEDICAL HISTORY Diagnosis Date Abnormal Pap smear of cervix ASCUS +HPV Depression/anxiety PAST SURGICAL HISTORY Procedure Laterality Date PAST SURGICAL HISTORY OF Left ACL Current Outpatient Medications Medication Sig Dispense Refill BIOTIN, BULK, MISC VIT 0-MAYG-[id number]-DHA ORAL Take by mouth. No current facility-administered medications for this visit. Allergies As of Date: 07/04/2023 Allergen Noted Reaction AMOXICILLIN 06/14/2023 Other: See Comments PENICILLINS 06/14/2023 Other: See Comments reviewed none Does patient have penicillin allergy: Yes, plan for allergy testing. As a child- unsure reaction REVIEW OF SYSTEMS: GENERAL: Negative for: Fever or Chills and Positive for: Fatigue HEENT: Negative for: Headache, Impaired Vision, Ringing in Ears, Nosebleeds NECK: Negative for: Swelling, Pain, Stiffness RESPIRATORY: Negative for: Cough, Shortness of breath, Wheezing GASTROINTESTINAL: Negative for: Heartburn, Constipation, Diarrhea, Blood in stool, Vomiting and Positive for: Constipation MUSCULOSKELETAL: Negative for: Muscle or joint pain, stiffness, Joint swelling NEUROLOGIC/PSYCHIATRIC: Negative for: Weakness, Paralysis, Numbness, Tingling, Tremor, Anxiety, Depression, Memory loss. History of counseling for anxiety and depression, no medications SKIN: Negative for: Rash, Itching GENITOURINARY: Negative for: vaginal itching, vaginal discharge, hematuria or dysuria and Positive for: urinary frequency PHYSICAL EXAM: BP 118/64 Wt 172 lb 9.6 oz (78.3kg) LMP 02/04/2023 GENERAL: pleasant in no apparent distress DERMATOLOGY: Normal, without lesions, non-icteric, and non-hirsute NECK: Supple and full range of motion CHEST: Normal inspiratory effort BREAST: deferred ABDOMEN: (more content not included)... [facility] 07-04-2023 Miscellaneous Notes Patient is a at 19.6 weeks gestation for NOB. She is a transfer of care from [place]. See progress note. Deonna Redd APRN.CNM documented in this encounter [facility] 07-04-2023 History of Presen t illness Narrative Images from the original note were not included. INITIAL OB ASSESSMENT OB Provider: Deonna Redd APRN CNM HPI: Jose Rafael is a 27 year old White here to establish Obstetrical Care. Patient's last menstrual period was 02/15/2023 (exact date). from OB Dating Form. Cycles irregular was unplanned but accepted Transfer of care from [facility] Complaints: None OB History T0 L0 SAB0 IAB0 Ectopic0 Multiple0 Live Births0 Patient's Risk Screening for delivery: Have you had a prior kamara between 20w and 36w6d?: No MEDICAL/PSYCHOSOCIAL HISTORY: History of hemorrhage or bleeding concerns: No Thyroid Disease: No History of chronic hypertension: No History of pre-existing diabetes: No No results found for: ABORHD No weight on file for this encounter. History of abnormal pap: Yes Prior treatment for cervical dysplasia: none. 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 I don't have enough money to pay my bills: Never Within the past 12 months, have you worried that your food would run out before you had money to buy more: Never In the past 12 months, has lack of reliable transportation kept you from going to medical appointments or work, or from keeping things needed for daily living: Never In the past 12 months, have you had any concerns about having a place to live, or about the condition or quality of your housing: Never Are there any cultural or spiritual needs we should be aware of: No Depression: denies symptoms of depression. OB Depression and Anxiety Screening- This Encounter (since 06/13/2023) Over the past 2 weeks have you felt down, depressed, or hopeless? Negative Over the past two weeks, have you felt little interest or pleasure in doing things? Negative Feeling nervous, anxious or on edge 2-More than half the days Not being able to stop or control worrying 0-Not al all Anxiety Pre-Screening Total (If >/= 3 additional questions will be reviewed) 2 GENETIC SCREENING: Partner present: No Patient verbalized knowledge of partner family health history: No -not sure she knoiws complete history Do you or your partner have any personal or family history of defects not previously discussed: No Do you have history of a complicated by anomaly, genetic condition, or demise: No Marital Status:engaged Partner: Name: Joe Everett Age: 25 Occupation: mechanical product engineer Gender: Male History of STDs: None PAST MEDICAL HISTORY Diagnosis Date Abnormal Pap smear of cervix ASCUS +HPV Depression/anxiety PAST SURGICAL HISTORY Procedure Laterality Date PAST SURGICAL HISTORY OF Left ACL Current Outpatient Medications Medication Sig Dispense Refill BIOTIN, BULK, MISC VIT 2-[id number]-[id number]-DHA ORAL Take by mouth. No current facility-administered medications for this visit. Allergies As of Date: 07/04/2023 Allergen Noted Reaction AMOXICILLIN 06/14/2023 Other: See Comments PENICILLINS 06/14/2023 Other: See Comments reviewed none Does patient have penicillin allergy: Yes, plan for allergy testing. As a child- unsure reaction REVIEW OF SYSTEMS: GENERAL: Negative for: Fever or Chills and Positive for: Fatigue HEENT: Negative for: Headache, Impaired Vision, Ringing in Ears, Nosebleeds NECK: Negative for: Swelling, Pain, Stiffness RESPIRATORY: Negative for: Cough, Shortness of breath, Wheezing GASTROINTESTINAL: Negative for: Heartburn, Constipation, Diarrhea, Blood in stool, Vomiting and Positive for: Constipation MUSCULOSKELETAL: Negative for: Muscle or joint pain, stiffness, Joint swelling NEUROLOGIC/PSYCHIATRIC: Negative for: Weakness, Paralysis, Numbness, Tingling, Tremor, Anxiety, Depression, Memory loss. History of counseling for anxiety and depression, no medications SKIN: Negative for: Rash, Itching GENITOURINARY: Negative for: vaginal itching, vaginal discharge, hematuria or dysuria and Positive for: urinary frequency PHYSICAL EXAM: BP 118/64 Wt 172 lb 9.6 oz (78.3kg) LMP 02/04/2023 GENERAL: pleasant in no apparent distress DERMATOLOGY: Normal, without lesions, non-icteric, and non-hirsute NECK: Supple and full range of motion CHEST: Normal inspiratory effort BREAST: deferred ABDOMEN: soft, non-tender, and no masses NEURO: alert and oriented x3,exam grossly non-focal OB Risk Screening: Completed, no positive findings documented. SBIRT Jose Rafael Dennis Geovani was given the 4P's screening tool. Jose Rafael answered as follows: OB Opioid Screening - Last Recorded (since 10/07/2022) Did any of your parents have a problem with alcohol or other drug use? Yes Father-ETOH Does your partner have a problem with alcohol or other drug use? No In the past, have you had difficulties in your life because of alcohol or other drugs, including prescription medications? No In the past month have you drunk any alcohol or used other drugs? No Are you taking medication for pain during the either prescribed or not? No Based on the screen and further questions, she is considered at Low risk due to:No past or current use. Positive reinforcement of current behavior. Deonna Redd APRN.CNM ASSESSMENT: 27 year old at 19w6d wks gestational age PLAN: 1) Patient oriented to practice. Discussed nutrition, folic acid supplementation, dietary guidelines, exercise, smoking, alcohol, caffeine, and drug use. Discussed routine OB labs including STD/HIV. Discussed how to access Your guide to a health and the Data Engineer. Discussed aneuploidy and carrier screening. Regarding aneuploidy screening, nuchal translucency/first trimester early anatomy ultrasound and NIPT were discussed. Regarding carrier screening, the myriad screen was discussed. The risks/benefits and limitations of NIPT/aneuploidy screening were reviewed including the potential for false negative and false positive results. We discussed the availability of professional-society guided carrier screening and reviewed the conditions screened and limitations of screening. The availability of genetic counseling was reviewed. Information on aneuploidy/carrier screening was provided. The patient chooses: Aneuploidy screening: declines screening and Carrier screening: Declines Patient has penicillin allergy, plan for allergy testing. Patient to discuss allergy with mother- unsure of reaction Reviewed midwifery and loss prevention representative services that are available. Follow up in 4 weeks or sooner prn. Deonna Redd APRN.CNM documented in this encounter [facility] 07-04-2023 Instructions Joey Black Cma - 07/04/2023 12:59 PM EDT Please select the following link to access the [facility] Your Guide to a Healthy . [email or web address] de documented in this encounter [facility] 06-14-2023 Note HNO ID: [id number] Author: Carol Taylor RN Service: ? Author Type: ? Type: Progress Notes Filed: 06/14/2023 5:23 PM Note Text: INITIAL OB ASSESSMENT OB Provider: Carol Taylor RN HPI: Jose Rafael is a 27 year old White here to establish Obstetrical Care. Patient's last menstrual period was 02/15/2023 (exact date). from OB Dating Form. Cycles irregular was unplanned but accepted Complaints: None OB History T0 L0 SAB0 IAB0 Ectopic0 Multiple0 Live Births0 Patient's Risk Screening for delivery: Have you had a prior kamara between 20w and 36w6d?: No MEDICAL/PSYCHOSOCIAL HISTORY: History of hemorrhage or bleeding concerns: No Thyroid Disease: No History of chronic hypertension: No History of pre-existing diabetes: No No results found for: ABORHD No weight on file for this encounter. History of abnormal pap: Yes Prior treatment for cervical dysplasia: none. 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 I don't have enough money to pay my bills: Never Within the past 12 months, have you worried that your food would run out before you had money to buy more: Never In the past 12 months, has lack of reliable transportation kept you from going to medical appointments or work, or from keeping things needed for daily living: Never In the past 12 months, have you had any concerns about having a place to live, or about the condition or quality of your housing: Never Are there any cultural or spiritual needs we should be aware of: No Depression: denies symptoms of depression. OB Depression and Anxiety Screening- This Encounter (since 06/13/2023) Over the past 2 weeks have you felt down, depressed, or hopeless? Negative Over the past two weeks, have you felt little interest or pleasure in doing things?? Negative Feeling nervous, anxious or on edge 2-More than half the days Not being able to stop or control worrying 0-Not al all Anxiety Pre-Screening Total (If >/= 3 additional questions will be reviewed) 2 GENETIC SCREENING: Partner present: No Patient verbalized knowledge of partner family health history: No -not sure she knoiws complete history Do you or your partner have any personal or family history of defects not previously discussed: No Do you have history of a complicated by anomaly, genetic condition, or demise: No Marital Status:engaged Partner: Name: Joe Everett Age: 25 Occupation: mechanical product engineer Gender: Male History of STDs: None PAST MEDICAL HISTORY Diagnosis Date Abnormal Pap smear of cervix +HPV Depression/anxiety PAST SURGICAL HISTORY Procedure Laterality Date PAST SURGICAL HISTORY OF Left ACL Current Outpatient Medications Medication Sig Dispense Refill BIOTIN, BULK, MISC VIT 8-[id number]-[id number]-DHA ORAL Take by mouth. No current facility-administered medications for this visit. Allergies As of Date: 06/14/2023 Allergen Noted Reaction AMOXICILLIN 06/14/2023 Other: See Comments reviewed none Does patient have penicillin allergy: Yes, plan for allergy testing. [facility] 06-09-2023 Note HNO ID: [id number] Author: Destiny Pfeiffer RN Service: ? Author Type: ? Type: Progress Notes Filed: 06/09/2023 10:59 AM Note Text: Received records from [place] [facility]. Integrated biometrics updated. Records placed in PNOB mailbox. PNOB on 06/14/23. Destiny Pfeiffer RN [facility] 06-09-2023 History of Presen t illness Narrative Received records from [place] [facility]. Integrated biometrics updated. Records placed in PNOB mailbox. PNOB on 06/14/23. Destiny Pfeiffer RN documented in this encounter [facility] 04-22-2023 History of Presen t illness Narrative Subjective Patient ID: Jose Rafael Lopez is a 27 y.o. female who presents for PHYSICAL (WORK PHYSICAL ). HPI: Presents today for WORK PHYSICAL. 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 NO NEW COMPLAINTS Visit Vitals BP 118/74 (BP Location: Right arm, Patient Position: Sitting) Pulse 74 Ht 1.702 m (5' 7 ) Wt 77.1 kg (170 lb) BMI 26.63 kg/m Smoking Status Never BSA 1.91 m Review of Systems Constitutional: Negative for chills, fatigue, fever and unexpected weight change. HENT: Negative for congestion, ear pain, sore throat and trouble swallowing. Eyes: Negative for photophobia, pain, redness and visual disturbance. Respiratory: Negative for apnea, cough, choking, chest tightness, shortness of breath and wheezing. Cardiovascular: Negative for chest pain, palpitations and leg swelling. Gastrointestinal: Negative for abdominal distention, abdominal pain, blood in stool, constipation, diarrhea, nausea and vomiting. Genitourinary: Negative for difficulty urinating, dysuria, flank pain, frequency, hematuria and urgency. Musculoskeletal: Negative for arthralgias, back pain, gait problem, joint swelling, myalgias and neck pain. Skin: Negative for rash and wound. Neurological: Negative for dizziness, seizures, syncope, facial asymmetry, speech difficulty, weakness, numbness and headaches. Psychiatric/Behavioral: Negative for confusion, sleep disturbance and suicidal ideas. The patient is not nervous/anxious. Objective Physical Exam Constitutional: Appearance: Normal appearance. She is normal weight. HENT: Head: Normocephalic. Eyes: Extraocular Movements: Extraocular movements intact. Conjunctiva/sclera: Conjunctivae normal. Pupils: Pupils are equal, round, and reactive to light. Cardiovascular: Rate and Rhythm: Normal rate and regular rhythm. Pulses: Normal pulses. Heart sounds: Normal heart sounds. Pulmonary: Effort: Pulmonary effort is normal. Breath sounds: Normal breath sounds. Musculoskeletal: General: Normal range of motion. Cervical back: Normal range of motion. Skin: General: Skin is warm and dry. Neurological: General: No focal deficit present. Mental Status: She is alert and oriented to person, place, and time. Psychiatric: Mood and Affect: Mood normal. Behavior: Behavior normal. Thought Content: Thought content normal. Judgment: Judgment normal. Assessment/Plan Problem List Items Addressed This Visit Wellness examination - Primary Paperwork has been fill out to patient satisfaction SHE IS CURRENTLY 2 MONTHS . INSTRUCTED TO CALL AFTER GIVING TO SET UP YEARLY WELLNESS APPT WITH LABS PATIENT IS STRONGLY ADVISED TO BE COMPLIANT WITH RECOMMENDATIONS. QUESTIONS AND CONCERNS WERE ADDRESSED. INSTRUCTED TO CALL, RETURN SOONER, OR GO TO THE ER, IF SYMPTOMS PERSIST OR WORSEN. THEY VOICED UNDERSTANDING AND DENIES FURTHER QUESTIONS AT THIS TIME. TIME CODE 1. PREPARATION FOR PATIENT'S VISIT (REVIEWING CHART, CURRENT MEDICAL RECORDS, OUTSIDE HEALTH PROVIDER RECORDS, PREVIOUS HISTORY, EXAM, TEST, PROCEDURE, AND MEDICATIONS) 2. FACE TO FACE ENCOUNTER OBTAINING HISTORY FROM THE PATIENT/FAMILY/CAREGIVERS; PERFORMING EVALUATION AND EXAMINATION; ORDERING TESTS OR PROCEDURES; REFERRING AND COMMUNICATING WITH OTHER HEALTHCARE PROVIDERS; COUNSELING AND EDUCATION OF THE PATIENT/FAMILY/CAREGIVERS; INDEPENDENTLY INTERPRETING RESULTS (TESTS, LABS, PROCEDURES, IMAGING) AND COMMUNICATING AND EXPLAINING RESULTS TO THE PATIENT/FAMILY/CAREGIVERS 3. COORDINATION OF CARE; PREPARING AND PRINTING DISCHARGE INSTRUCTIONS AND ANY EDUCATIONAL MATERIAL FOR THE PATIENT/FAMILY/CAREGIVERS. DOCUMENTING CLINICAL INFORMATION IN THE ELECTRONIC MEDICAL RECORD 4. REVIEWING OARRS NEEDED MDM 1) COMPLEXITY: 1 ACUTE ILLNESS, 1 STABLE CHRONIC CONDITION, OR 2 MINOR PROBLEMS ADDRESSED 2)DATA: TESTS INTERPRETED AND OR ORDERED, TOOK INDEPENDENT HISTORY OR RECORDS REVIEWED 3)RISK: LOW RISK DUE TO NATURE OF MEDICAL CONDITIONS/COMORBIDITY OR MEDICATIONS ORDERED OR SURGICAL OR PROCEDURE REFERRAL PRN documented in this encounter [facility] Work Phone: documented in this encounter [facility] Work Phone: Evaluation note* Diagnosis Encounter for supervision of normal first in second trimester- Primary Supervision of normal first with care elsewhere, antepartum [facility] Diagnosis 25 weeks gestation of - Primary state, incidental with care elsewhere, antepartum [facility] Diagnosis with care elsewhere in third trimester- Primary 28 weeks gestation of state, incidental [facility] Diagnosis Encounter for supervision of normal first in third trimester- Primary Supervision of normal first 32 weeks gestation of state, incidental with care elsewhere in third trimester Vaginal discharge during in third trimester Vaginal irritation Unspecified noninflammatory disorder of vagina Penicillin allergy Personal history of allergy to penicillin [facility] Diagnosis 32 weeks gestation of - Primary state, incidental Encounter for supervision of normal first in third trimester Supervision of normal first [facility]* Presents today TO ESTABLISH NEW. C/O ANXIETY AND DEPRESSION X modifying factors consists of associated symptoms consist of DENIES SUICIDAL IDEATION. DENIES PANIC ATTACKS. INSOMNIA prior treatment consists of medication NONE * C/O LEFT CERVICAL LYMPH NODE SWELLING X SEVERAL MONTHS modifying factors consists of FAMILY H/O NONHODGKIN'S LYMPHOMA AND MELANOMA associated symptoms consist of NON TENDER prior treatment consists of medication ATB FROM URGENT CARE * HPV- FOLLOWS WITH ONCOLOGY [facility] Work Phone: History of Present illness Narrative* Presents today for [facility] AND US NECK F/U. SHE BROUGHT A PAPER TO BE FILLED OUT FOR HER COL[employer]GE ([employer] [facility]) TO GIVE HER MORE TIME FOR EXAMS. SHE STATES HER ANXIETY CAUSES PANIC ATTACKS AT TIMES AND MAKES HER NOT BE ABLE TO THINK OR CONCENTRATE. NO NEW COMPLAINTS * LYMPH NODE- US REMARKABLE. SHE STATES IT HAS DECREASED IN SIZE AND ALMOST GONE. REFUSING CT AT THISTIME * LIPIDS- ELEVATED. REFUSING MED MANAGEMENT. DIET MODIFICATIONS DISCUSSED * ANXIETY/DEPRESSION- DEPRESSION STABLE. ANXIETY CONTROLLED WITH WALKING AND READING. REFUSING MED MANAGEMENT. SHE USES CALMING TECHNIQUES WHICH HELPS [facility] Work Phone: Reason for referral (narrative)* Diagnostic Procedure Only (Routine) - Pending Review Specialty Diagnoses / Procedures Referred By Angela pugh Referred To Contact [facility] Diagnoses 28 weeks gestation of with care elsewhere in third trimester Procedures OBSTETRIC ULTRASOUND WHI US PREG UTERUS AFTER 1ST TRIMEST GESTATION Swati Mendoza MD [address] [place] [address] [facility] [address] [place] [id number] Referral ID Status Reason Start Date Expiration Date Visits Requested Visits Authorized [id number] Pending Review Auto-Generat ed Referral 3 08/22/2024 1 1 [facility] Summary Purpose Family History No Family History Records FoundUnknown Family Member Name Dates Details Family history of non-Hodgki n's lymphoma: Father(V16.7, Z80.7) Status:Active Family history of malignant melanoma: Mother, Father, Maternal Grandmother(V16.8, Z80.8) Status:Active Family history of type 2 victor manuel betes mellitus: Maternal Grandmother(V18.0, Z83.3) Status:Active Unknown Family Member Name Dates Details Family history of non-Hodgki n's lymphoma: Father(V16.7, Z80.7) Status:Active Family history of malignant melanoma: Mother, Father, Maternal Grandmother(V16.8, Z80.8) Status:Active Family history of type 2 victor manuel betes mellitus: Maternal Grandmother(V18.0, Z83.3) Status:Active Unknown Family Member Name Dates Details Family history of non-Hodgki n's lymphoma: Father(V16.7, Z80.7) Status:Active Family history of malignant melanoma: Mother, Father, Maternal Grandmother(V16.8, Z80.8) Status:Active Family history of type 2 victor manuel betes mellitus: Maternal Grandmother(V18.0, Z83.3) Status:Active Advance Directives No Advanced Directives Records FoundNo Advanced Directives Records FoundNo Advanced Directives Records FoundNo Advanced Directives Records FoundNo Advanced Directives Records Found Chief Complaint EST NEW; C/O ANXIETY AND DEPRESSION; C/O SWOLLEN LYMPH NODE L SIDE NECK SINCE APRIL-FATHER HAS NON HODGKIN'S LYMPHOMA AND MELANOMAF/U US OF HEAD AND NECK. ALSO HAS FORM FOR SCHOOL TO HAVE EXTENDED TIME FOR TESTS/EXAMS Health Concerns Problem Noted Date Diagnosed Date [facility] - [facility] 07/04/2023 Education - [place] 07/04/2023 Problem Noted Date Diagnosed Date [facility] - [facility] 07/04/2023 Education - [place] 07/04/2023 Problem Noted Date Diagnosed Date [facility] - [facility] 07/04/2023 Education - [place] 07/04/2023 Problem Noted Date Diagnosed Date [facility] - [facility] 07/04/2023 Education - [place] 07/04/2023 Problem Noted Date Diagnosed Date [facility] - [facility] 07/04/2023 Education - [place] 07/04/2023 Problem Noted Date Diagnosed Date [facility] - [facility] 07/04/2023 Education - [place] 07/04/2023 Problem Noted Date Diagnosed Date [facility] - [facility] 07/04/2023 Education - [place] 07/04/2023 Medications Administered Section Administered Medications Medication Order MAR Action Action Date Dose Rate Site tuberculin skin test (TST-PPD), purified protein derivative, intradermal Given 04/01/2022 Additional Source Comments INFORMATION SOURCE (unrecogn ized section and content) DATE CREATED AUTHOR AUTHOR'S ORGANIZ ATION 07/10/2021 [employer] DATE CREATED AUTHOR AUTHOR'S ORGANIZ ATION 07/15/2021 [facility] DATE CREATED AUTHOR AUTHOR'S ORGANIZ ATION 07/17/2022 [facility] DATE CREATED AUTHOR AUTHOR'S ORGANIZ ATION 11/02/2023 [facility] Reason for Visit (unrecogniz ed section and content) Reason Comments Received Outside Medical Records Reason Comments PRAF Reason Onset Date Comments Care 08/02/2023 Reason Onset Date Comments Care 08/23/2023 Reason Comments Breast Pump Reason Comments Patient Question Reason Onset Date Comments Care 09/15/2023 Reason Comments Results Reason Onset Date Comments Care 09/21/2023 Care Teams (unrecognized sec tion and content) Source Comments (unrecognize d section and content) In the event this informatio n is protected by the Federal Confidentiality of Alcohol and Drug Abuse Patient Records regulations: The Federal rules restrict any use of the information to criminally investigate or prosecute any alcohol or drug abuse patient.[facility] the event this information is protected by the Federal Confidentiality of Alcohol and Drug Abuse Patient Records regulations: The Federal rules restrict any use of the information to criminally investigate or prosecute any alcohol or drug abuse patient.[facility] the event this information is protected by the Federal Confidentiality of Alcohol and Drug Abuse Patient Records regulations: The Federal rules restrict any use of the information to criminally investigate or prosecute any alcohol or drug abuse patient.[facility] the event this information is protected by the Federal Confidentiality of Alcohol and Drug Abuse Patient Records regulations: The Federal rules restrict any use of the information to criminally investigate or prosecute any alcohol or drug abuse patient.[facility] the event this information is protected by the Federal Confidentiality of Alcohol and Drug Abuse Patient Records regulations: The Federal rules restrict any use of the information to criminally investigate or prosecute any alcohol or drug abuse patient.[facility] the event this information is protected by the Federal Confidentiality of Alcohol and Drug Abuse Patient Records regulations: The Federal rules restrict any use of the information to criminally investigate or prosecute any alcohol or drug abuse patient.[facility] the event this information is protected by the Federal Confidentiality of Alcohol and Drug Abuse Patient Records regulations: The Federal rules restrict any use of the information to criminally investigate or prosecute any alcohol or drug abuse patient.[facility] the event this information is protected by the Federal Confidentiality of Alcohol and Drug Abuse Patient Records regulations: The Federal rules restrict any use of the information to criminally investigate or prosecute any alcohol or drug abuse patient.[facility] the event this information is protected by the Federal Confidentiality of Alcohol and Drug Abuse Patient Records regulations: The Federal rules restrict any use of the information to criminally investigate or prosecute any alcohol or drug abuse patient.[facility] the event this information is protected by the Federal Confidentiality of Alcohol and Drug Abuse Patient Records regulations: The Federal rules restrict any use of the information to criminally investigate or prosecute any alcohol or drug abuse patient.[facility] FOR RECORDS PERTAINING TO PATIENTS WHO ARE OR HAVE BEEN ENROLLED IN A CHEMICAL DEPENDENCY/SUBSTANCEABUSE PROGRAM, SOME INFORMATION MAY BE OMITTED. This clinical summary was aggregated from multiple sources. Caution should be exercised in using it in the provision of clinical care. This summary normalizes information from multiple sources, and as a consequence, information in this document may materially change the coding, format and clinical context of patient data. In addition, data may be omitted in some cases. CLINICAL DECISIONS SHOULD BE BASED ON THE PRIMARY CLINICAL RECORDS. [facility] [employer] [facility]. provides no warranty or guarantee of the accuracy or completeness of information in this document.
[2023-11-03 17:35] VITALS: BP 138/74; PULSE 104; TEMP 37
[2023-11-03 17:41] VITALS: BMI 30.7
[2023-11-03 17:51] VITALS: BP 129/64; PULSE 92
[2023-11-03 17:57] LABS: Hematocrit 35.3 % (37-47); Hemoglobin 11.7 g/dL (12.0-15.0); Mean Corp Hgb Conc 33.1 g/dL (32-36); Mean Corpuscular Hgb 28.7 pg (27.0-32.0); Mean Corpuscular Volume 86.5 fL (81-99); Mean Platelet Vol. 10.2 fl (6.2-12.0); Platelet Count 289 K/mm3 (150-450); RBC Distribution Width CV 11.9 % (11.6-14.6); RBC Distribution Width SD 37.8 fl (35.1-43.9); Red Blood Count 4.08 M/mm3 (4.2-5.4); White Blood Count 15.2 K/mm3 (4.4-11.0)
[2023-11-03 18:06] VITALS: BP 129/73; PULSE 100
[2023-11-03 18:11] LABS: AST(SGOT) 19 U/L (15-37); Alanine Aminotransfer ALT/SGPT 23 U/L (13-56); Creatinine, Serum 0.49 mg/dL (0.55-1.02); EST Glomerular Filtration Rate 163 mL/min (>60); Est Glom Filt Rate - Afr Amer 197 mL/min (>60); Estimated Creatinine Clearance 199.19 ml/min; Uric Acid 3.9 mg/dL (2.6-6.0)
[2023-11-03 18:15] LABS: Protein, Urine (Random) 12.5 mg/dL (<11.9); Protein:Creat Ratio 226 mg/g CRE (0-200)
[2023-11-03 18:22] VITALS: BP 134/70; PULSE 99
--- NOTE | 2023-11-04 10:03 | OB.TRI.NOTE ---
HPI - General General Date of Admission: 11/03/23 Date of Service: 11/03/23 Chief Complaint: elevated BP in office HPI Narrative JOSE RAFAEL LOPEZ, is a 28 F who presents from office Maternal Data Information Final ORESTES: 11/10/23 Gestational age: 39 0/7 PFSH PFSH Home Medications vit no.95-ferrous fumarate 28 mg-folic acid 800 mcg tablet () 1 tab PO DAILY 11/03/23 [History Last Taken Unknown] Social History Smoking Status: Never smoker NST FHR Rate Baby A Baseline: 135 Variability:: Moderate Accelerations:: 15 x 15 Decelerations:: None NST Reactive:: Yes FHR Category:: Category I Uterine Activity:: irreg ctxs Assessment & Plan (1) Elevated blood pressure complicating in third trimester, antepartum: PLAN: 28-year-old nulligravida patient at 39 weeks gestation with elevated blood pressure in the office. No signs or symptoms of preeclampsia on labor and delivery. Patient was normotensive with negative preeclampsia labs. She is to follow-up in the office closely and call or return for any signs or symptoms of preeclampsia.
== END 2023-11-03 18:30 | disposition home or self-care (01) ==
LOC: WPOUT 17:24 → WP 17:24
PROVIDERS: Obstetrics & Gynecology; Referring Provider Obstetrics & Gynecology; Visit Provider Obstetrics & Gynecology
DX: O99.891 Other specified diseases and conditions complicating pregnancy (principal); R03.0 Elevated blood-pressure reading, without diagnosis of hypertension; Z3A.39 39 weeks gestation of pregnancy
CPT/HCPCS: 36415; 59025; 59050; 82565; 82570; 84156; 84450; 84460; 84550; 85027

== ENCOUNTER 2023-11-15 19:05 | Inpatient (IN) | payer MEDICAID, SELFPAY ==
[2023-11-15] VITALS (8 sets, daily range): BP systolic 116–133; BP diastolic 65–72; PULSE 71–103; TEMP 36.2–36.8; O2SAT 79–98; BMI 31.7
[2023-11-15] MEDS: Lactated Ringers 1,000 ML 50 ML IV (19:20)
[2023-11-15 20:05] LABS: Absolute Lymphocyte Count 1.88 X10^3/uL (0.83-4.51); Absolute Neutrophil Count 8.8 X10^3/uL (2.0-7.7); Basophil# 0.02 X10^3/uL; Basophil% 0.2 % (0-1); Eosinophil# 0.09 X10^3/uL; Eosinophils% 0.8 % (0-5); Hematocrit 32.6 % (37-47); Hemoglobin 10.9 g/dL (12.0-15.0); Lymphocyte # 1.88 X10^3/ul (0.83-4.51); Lymphocyte % 16.2 % (19-41); Mean Corp Hgb Conc 33.4 g/dL (32-36); Mean Corpuscular Hgb 28.9 pg (27.0-32.0); Mean Corpuscular Volume 86.5 fL (81-99); Mean Platelet Vol. 10.6 fl (6.2-12.0); Monocyte% 6.9 % (0-10); NRBC Flagged by Analyzer 0 % (0-5); Neutrophil # 8.81 X10^3/uL (2.7-7.7); Neutrophil % 75.6 % (47-70); Platelet Count 284 K/mm3 (150-450); RBC Distribution Width CV 12.3 % (11.6-14.6); RBC Distribution Width SD 38.8 fl (35.1-43.9); Red Blood Count 3.77 M/mm3 (4.2-5.4); White Blood Count 11.6 K/mm3 (4.4-11.0)
[2023-11-15] MEDS: 0.9% Normal Saline Single 100 ML IV.SOLN. INTRA-UTER (20:08)
--- OUTSIDE RECORDS SUMMARY | 2023-11-15 20:10 | XMS RPT_ITS | CCD ---
Author Name Unknown Address [address] [place] [address] Organization [facility] Care Team Providers Care Filing And Polishing Supervisor Name Role Phone Tizzano, Justo P Unavailable [...] Gee Unavailable Unavailable Unavailable Ms. STACI GEE ROEGLIO Referring Unavailab jenny GEE, MsRoyal SILVA ROGELIO Attending Unavailab jenny GEE, MsRoyal STACI ROGELIO Primary Care Unavailab Staci Gaviria Primary Care Provider Unavailable Primary Care Provider UnavailMARZENA Joy Attending Unavailable PLOTTS, DEONNA Attending Unavailable LUDMILA DAVIS Attending Unavailable AMADEO SORIA Attending Unavailable MAIDA GALLO Attending Unavailable DEONNA REDD Attending Unavailable SWATI MENDOZA Attending Unavail able ALISIA REYES Attending Unavailable PLOTTS, DEONNA Referring Unavailable PLOTTS, DEONNA Referring Unavailable PLOTTS DEONNA Attending Unavailable ALISIA REYES Referring Unavailable MAIDA GALLO Attending Unavailable PLOTDEONNA DUMONT Attending Unavailable AMADEO SORIA Attending Unavailable MARY GAMBLE Attending Unavailable ALISIA REYES Referring Unavailable Allergies Allergy Classification Reported Allergen(s) Allergy Type Date of Onset Reaction(s) Facility (15 sources) amoxicillin; Translations: [amoxicillin] Drug Allergy 3 Other, Other: See Comments [facility] Repository (15 sources) Penicillins; Translations: [penicillins] Propensity to adverse reactions to drug (disorder) 3 Unknown, Other: See Comments [facility] Repository Medications Current Medications Medication Drug Class(es) Dates Sig (Normalized) Sig (Original) biotin 10 mg oral tablet (4 sources) take 1 tablet by lgoan th once daily biotin 10 mg tablet Take 1 tablet (10 mg) by mouth once daily. 0 Active Completed/Discontinued Medications Medication Drug Class(es) Dates Sig (Normalized) Sig (Original) BIOTIN, BULK, MISC (10 sources) BIOTIN, BULK, MISC famotidine 20 mg oral tablet (1 source) Histamine-2 Receptor Antagonist Start: 10-18-2023 take 1 tablet by mouth twice daily famotidine (PEPCID) 20 mg tablet Take 1 tablet by mouth two times a day. 60 tablet 1 10/18/2023 Active Problems Active Problems Problem Classification Problem Date Documented Date Episodic/Chronic Allergic reactions (1 source) Allergy to penicillin; Translations: [Allergy status to penicillin] 09-15-2023 Episodic Anxiety disorders (4 sources) Anxiety; Translations: [Anxiety state, unspecified] Onset: 04-22-2023 04-22-2023 Chronic Diabetes mellitus without complication (7 sources) Increased glucose level; Translations: [Other abnormal glucose] Onset: 08-24-2023 08-24-2023 Episodic Disorders of lipid metabolism (2 sources) Hyperlipidemia; Translations: [Other and unspecified hyperlipidemia] Onset: 04-22-2023 04-22-2023 Chronic Lymphadenitis (2 sources) Lymphadenopathy; Translations: [Enlargement of lymph nodes] Episodic Mood disorders (4 sources) Moderate major depression, single episode; Translations: [Major depressive affective disorder, single episode, moderate] Onset: 04-22-2023 04-22-2023 Chronic Other circulatory disease (1 source) Elevated blood-pressure reading without diagnosis of hypertension; Translations: [Elevated blood-pressure reading, without diagnosis of hypertension] 11-11-2023 Episodic Other complications of (1 source) Vaginal discharge; Translations: [Other specified related conditions, third trimester] 09-15-2023 Episodic Other female genital disorders (1 source) Vaginal irritation; Translations: [Other specified noninflammatory disorders of vagina] 09-15-2023 Episodic Other and delivery including normal (20 sources) Normal ; Translations: [Encounter for supervision [...] 09-15-2023 Episodic Residual codes; unclassified (1 source) Gestation period, 40 weeks; Translations: [40 weeks gestation of ] 11-11-2023 Episodic Residual codes; unclassified (1 source) 36 [...] Vital Sign Value Performing Clinician Joann damon 11-11-2023 15:42-0500 Body weight 90.72 kg Maida Gallo MD Work Phone: [facility] 11-11-2023 15:42-0500 Diastolic blood pressure 70 mm[Hg] Maida Gallo MD Work Phone: [facility] 11-11-2023 15:42-0500 Systolic blood pressure 126 mm[Hg] Maida Gallo MD Work Phone: [facility] 09-21-2023 14:56-0500 Body height 170.2 cm Maida Gallo MD Work Phone: [facility] 09-21-2023 14:40-0500 Body weight 84.37 kg Maida Gallo MD Work Phone: [facility] 09-21-2023 14:40-0500 Diastolic blood pressure 60 mm[Hg] Maida Gallo MD Work Phone: [facility] 09-21-2023 14:40-0500 Systolic blood pressure 122 mm[Hg] Maida Gallo MD Work Phone: [facility] 09-15-2023 13:51-0500 Body weight 84.82 kg Alisia Reyes MAINTENANCE SHOP CLERK.PATIENT ACCOUNT ANALYST Work Phone: [facility] 09-15-2023 13:51-0500 Diastolic blood pressure 60 mm[Hg] Alisia Haury MAINTENANCE SHOP CLERK.PATIENT ACCOUNT ANALYST Work Phone: [facility] 09-15-2023 13:51-0500 Systolic blood pressure 124 mm[Hg] Alisia Vizcainoury MAINTENANCE SHOP CLERK.PATIENT ACCOUNT ANALYST Work Phone: [facility] 08-23-2023 08:05-0500 Body weight 83.92 kg Swati Ho MD Work Phone: [facility] 08-23-2023 08:05-0500 Diastolic blood pressure 60 mm[Hg] Swati Ho MD Work Phone: [facility] 08-23-2023 08:05-0500 Systolic blood pressure 114 mm[Hg] Swati Ho MD Work Phone: [facility] 08-02-2023 16:35-0400 Body weight 81.38 kg Deonna Redd MAINTENANCE SHOP CLERK.CNM Work Phone: [facility] 08-02-2023 16:35-0400 Diastolic blood pressure 62 mm[Hg] Deonna Plotts MAINTENANCE SHOP CLERK.CNM Work Phone: [facility] 08-02-2023 16:35-0400 Systolic blood pressure 114 mm[Hg] Deonna Plotts MAINTENANCE SHOP CLERK.CNM Work Phone: [facility] 07-04-2023 13:05-0400 Body weight 78.29 kg Deonna Plotts MAINTENANCE SHOP CLERK.CNM Work Phone: [facility] 07-04-2023 13:05-0400 Diastolic blood pressure 64 mm[Hg] Deonna Plotts MAINTENANCE SHOP CLERK.CNM Work Phone: [facility] 07-04-2023 13:05-0400 Systolic blood pressure 118 mm[Hg] Deonna Plotts MAINTENANCE SHOP CLERK.CNM Work Phone: [facility] 04-22-2023 14:55-0400 Body height 170.2 cm Staci Walker MAINTENANCE SHOP CLERK-PATIENT ACCOUNT ANALYST Work Phone: [facility] 04-22-2023 14:55-0400 Body mass index (BMI) [Ratio] 26.63 kg/m2 Staci Walker MAINTENANCE SHOP CLERK-PATIENT ACCOUNT ANALYST Work Phone: [facility] 04-22-2023 14:55-0400 Body weight 77.11 kg Staci Walker APRN-PATIENT ACCOUNT ANALYST Work Phone: [facility] 04-22-2023 14:55-0400 Diastolic blood pressure 74 mm[Hg] Staci Walker MAINTENANCE SHOP CLERK-PATIENT ACCOUNT ANALYST Work Phone: [facility] 04-22-2023 14:55-0400 Heart rate 74 /min Staci Walker APRN-PATIENT ACCOUNT ANALYST Work Phone: [facility] 04-22-2023 14:55-0400 Systolic blood pressure 118 mm[Hg] Staci Walker MAINTENANCE SHOP CLERK-PATIENT ACCOUNT ANALYST Work Phone: [facility] 07-09-2021 13:53-0400 Body height 170.18 cm Staci Gee Work Phone: [facility] Work Phone: 07-09-2021 13:53-0400 Body mass index (BMI) [Ratio] 25.69 kg/m2 Staci Summerskins Work Phone: [facility] Work Phone: 07-09-2021 13:53-0400 Body surface area Derived from formula 1.86 m2 Staci Gee Work Phone: [facility] Work Phone: 07-09-2021 13:53-0400 Body weight 74.39 kg Staci Jose Isi Work Phone: [facility] Work Phone: 07-09-2021 13:53-0400 Diastolic blood pressure 68 mm[Hg] Staci Garcia Isi Work Phone: [facility] Work Phone: 07-09-2021 13:53-0400 Heart rate 76 /min Staci Gee Work Phone: [facility] Work Phone: 07-09-2021 13:53-0400 SaO2% (BldA) [Mass fraction] 99 % Staci Gee Work Phone: [facility] Work Phone: 07-09-2021 13:53-0400 Systolic blood pressure 120 mm[Hg] Staci Jose Gee Work Phone: [facility] Work Phone: 06-11-2021 13:49-0400 Body height 170.18 cm Staci Garcia Gee Work Phone: [facility] Work Phone: 06-11-2021 13:49-0400 Body mass index (BMI) [Ratio] 25.69 kg/m2 Staci Summerskins Work Phone: [facility] Work Phone: 06-11-2021 13:49-0400 Body surface area Derived from formula 1.86 m2 Staci Gee Work Phone: [facility] Work Phone: 06-11-2021 13:49-0400 Body weight 74.39 kg Staci Gee Work Phone: [facility] Work Phone: 06-11-2021 13:49-0400 Diastolic blood pressure 74 mm[Hg] Staci Gee Work Phone: [facility] Work Phone: 06-11-2021 13:49-0400 Heart rate 76 /min Staci Gee Work Phone: [facility] Work Phone: 06-11-2021 13:49-0400 Systolic blood pressure 124 mm[Hg] Staci Gee Work Phone: [facility] Work Phone: Encounters Encounter Date Encounter Type Care Provider Facility Start: 11-11-2023 End: 11-11-2023 ambulatory MAIDA GALLO Facility:[facility] Start: 11-11-2023 End: 11-11-2023 Patient encounter procedure Maida Gallo MD Work Phone: OB/Gynecology Procedures Date Procedure Procedure Detail Performing Clinician Start: 11-11-2023 URINE OB DIP B/O Charly Gallo MD Work Phone: Start: 09-21-2023 URINE OB DIP B/O Charly Gallo MD Work Phone: Start: 09-15-2023 URINE OB DIP B/O Alisia Reyes APRN.CNP Work Phone: Start: 08-23-2023 URINE OB DIP B/O Swati Ho MD Work Phone: Start: 08-02-2023 Urnls dip stick/tabl et rgnt auto w/o microscopy Deonna Redd VPIIN.CNM Work Phone: Start: 04-05-2023 CBC panel - [...] panel - S suresh or Plasma Staci Walker APRN-PATIENT ACCOUNT ANALYST Work Phone: Start: 10-10-2013 Operative procedure on knee Staci Gee Work Phone: Plan of Treatment Date Care Activity Detail Author Start: 2047 Zoster Vaccines (1 o f 2) Zoster Vaccines (1 of 2) [facility] Start: 06-18-2026 Lip[address]id Panel [facility] Start: 04-23-2024 Yearly Adult Physical Yearly Adult P hysical [facility] Start: 10-10-2023 Depression Assessment Depression Ass essment [facility] Start: 09-15-2023 RSV Vaccine (1 - Ris k 1-dose series) RSV Vaccine (1 - Risk 1-dose series) [facility] Start: 08-23-2023 End: 08-23-2024 OBSTETRIC ULTRASOUND [facility] OBSTETRIC ULTRASOUND [facility] Anc Imaging Routine 28 weeks gestation of with care elsewhere in third trimester Expected: 08/23/2023, Expires: 08/23/2024 [facility] Work Phone: Immunizations Immunization Date Immunization Notes Care Provider Herbie galvez 07-22-2022 Influenza, injectabl e, Madin [place] Canine Kidney, preservative free, quadrivalent Staci Walker APRN-PATIENT ACCOUNT ANALYST Work Phone: [facility] Work Phone: 07-22-2022 influenza virus vaccine, unspecified formulation Staci Walker APRN-TALON Work Phone: [facility] Work Phone: 04-01-2022 tuberculin skin test ; purified protein derivative solution, intradermal Staci WANG Work Phone: [facility] Work Phone: 04-18-2002 diphtheria, tetanus toxoids and acellular pertussis vaccine, unspecified formulation Staci Walker APRN-TALON Work Phone: [facility] Work Phone: 04-18-2002 poliovirus vaccine, unspecified formulation Staci Walker APRN-TALON Work Phone: [facility] Work Phone: 07-04-2000 haemophilus influenz ae type b vaccine, conjugate unspecified formulation Staci Walker APRN-TALON Work Phone: [facility] Work Phone: 04-07-1999 diphtheria, tetanus toxoids and acellular pertussis vaccine, unspecified formulation Staci Walker APRN-TALON Work Phone: [facility] Work Phone: 04-07-1999 haemophilus influenz ae type b vaccine, HbOC conjugate Staci Walker APRN-TALON Work Phone: [facility] Work Phone: 06-20-1998 diphtheria, tetanus toxoids and acellular pertussis vaccine, unspecified formulation Staci Walker APRN-TALON Work Phone: [facility] Work Phone: 06-20-1998 hepatitis B vaccine, pediatric or pediatric/adolescent dosage Staci Walker APRN-TALON Work Phone: [facility] Work Phone: 01-26-1998 diphtheria, tetanus toxoids and acellular pertussis vaccine, unspecified formulation Staci Walker APRN-TALON Work Phone: [facility] Work Phone: 01-16-1998 diphtheria, tetanus toxoids and acellular pertussis vaccine, unspecified formulation Staci Walker APRN-PATIENT ACCOUNT ANALYST Work Phone: [facility] Work Phone: 01-16-1998 haemophilus influenz ae type b vaccine, conjugate unspecified formulation Staci Walker APRN-PATIENT ACCOUNT ANALYST Work Phone: [facility] Work Phone: 1995 diphtheria, tetanus toxoids and acellular pertussis vaccine, unspecified formulation Staci Walker APRN-PATIENT ACCOUNT ANALYST Work Phone: [facility] Work Phone: 1995 haemophilus influenz ae type b vaccine, conjugate unspecified formulation Staci Walker APRN-PATIENT ACCOUNT ANALYST Work Phone: [facility] Work Phone: 1995 hepatitis B vaccine, pediatric or pediatric/adolescent dosage Staci Walker APRN-PATIENT ACCOUNT ANALYST Work Phone: [facility] Work Phone: 1995 hepatitis B vaccine, pediatric or pediatric/adolescent dosage Staci Walker APRN-PATIENT ACCOUNT ANALYST Work Phone: [facility] Work Phone: Payers Date Payer Category Payer Medicaid [place] [employer] [employer] [id number] 2023-Present [phone] [facility] [address] [place] [id number] Medicaid [id number] 2023 Medicaid [id number] 2021 Unknown [id number] 2017 Unknown 1995 Unknown [id number] Social History Date Type Detail Facility Start: 04-22-2023 End: 11-14-2023 Never smoked tobacco Never smoked tobacco [facility] Work Phone: Start: 04-22-2023 End: 06-14-2023 Tobacco smoking status NHIS Never smoked tobacco [facility] Work Phone: Start: 04-22-2023 End: 06-14-2023 Tobacco use and exposure Smokeless tobacco non-user [facility] Work Phone: Start: 04-22-2023 Alcohol intake Lifetime non-drinker (finding) [facility] Work Phone: Start: 04-22-2023 End: 08-23-[address] [facility] Work Phone: Start: 1995 Sex Assigned At Not on file [facility] Work Phone: Start: 04-12-2023 End: 04-22-2023 Exposure to SARS-CoV-2 (event) Not sure [facility] Tobacco smoking stat us NHIS Tobacco smoking consumption unknown [facility] Start: 07-04-2023 End: 11-11-2023 Alcohol intake Ex-drinker (finding) [facility] National Score (1-10 0), lower number is lower risk 87 [facility] Start: 06-14-2023 Education 16 [facility] Start: 02-17-2023 [facility] Start: 1995 Sex Assigned At Female [facility] Start: 06-14-2023 Gender identity Identifies as female gender (finding) [facility] Start: 06-14-2023 Sexual orientation Heterosexual (finding) [facility] Goals Date Patient Goal Desired Activity /State Personal health goal Clinical Notes 04-22-2023 to 11-11-2023 Quick Notes - Maida Gallo MD - 11/11/2023 4:26 PM ESTPatient InstructionsPrenatal Quick Notes - Maida Gallo MD - 09/21/2023 2:56 PM ESTPatient InstructionsPatient Instructions Note Date & Type Note Facility 11-11-2023 Miscellaneous Notes RR- VB No. LOF No. CTXS No. Movement: present. Other c/o: denies VIZCAINO or visual changes. Denies epigastric pain Medication list reviewed. Physical Exam See Flow Sheet Abd: soft, nontender, gravid Ext: edema: 2+ , no clonus, 2+ DTRs A/P 40w1d Estimated Date of Delivery: 11/10/23 Kick counts reviewed, some elevated BP earlier in the week w/o evidence of preeclampsia. Offered induction, would like to wait until closer to 41 weeks. Since not officially gest HTN, ok for this but she understands importance of call/return for symptoms or signs of preeclampsia. Kick counts. R/B/A to payne/cytotec/pit and arom induction reviewed, consent signed. . Maida Gallo M.D. Medical Decision Making: Problems: Moderate: 1+ chronic illnesses with change Data: Unique test result(s) reviewed: 2 Risk: Moderate: Moderate risk from testing/treatment Medical Decision Making Level: 4 - Moderate documented in this encounter [facility] 11-11-2023 Instructions Gisela Cedillo Ma 11/11/2023 3:40 PM EST SEQUENTIAL SCREENINGS The [facility] offers sequential screenings for women who [...] It will require an appointment with our field operations technician. This is not an ultrasound performed [...] the above symptoms, contact our office at [phone] and ask to speak with a nurse. After hours, you can call doctors registry at [phone] OR call [facility] at [phone] and ask to have the doctor acquisition advisor paged. If you consider this an emergency, dial 9--1 or go to your nearest emergency department. NEED HELP? Are you dealing with a violent or abusive relationship? Are you a victim of rape or sexual assult? Call [facility] ([facility]) 24 hour Crisis Hotline: 427.779.7732 or 204-342-1596. MANUAL Your Guide to a Healthy manual is now on-line. Visit [email or web address] to download your free copy documented in this encounter [facility] 11-03-2023 Note HNO ID: [id number] Author: HARI LONGO LPN Service: ? Author Type: LICENSED NURSE Type: Progress Notes Filed: 11/03/2023 17:15 Note Text: [place] Bp readings: 141/88, 132/78, 115/79, 140/93 [facility] 11-01-2023 Note HNO ID: [id number] Author: ?, ?, ? Service: ? Author Type: ? Type: Progress Notes Filed: 11/01/2023 13:45 Note Text: POPULATION HEALTH NAVIGATION OUTREACH Action/FYI 3rd attempt- Called and spoke to patient and updated OB/PEDS field to patient's perferred mergers and acquisitions associate. Patient thanked me for calling her. OB/PEDS Patient Identified by Name and : YES, via phone Outreach Outcome/Action OB/PEDS field updated Did you use a PCP flex slot to schedule this appointment? N/A Navigation Signature: Brenda Galloway November 01, 2023 1:43 PM [facility] 10-28-2023 Note HNO ID: [id number] Author: ?, ?, ? Service: ? Author [...] schedule this appointment? N/A Reason for Outreach Payer: Payor: [place] / Plan: [facility] MEDICAID / Product Type: Medicaid / Care [...] Brenda Galloway October 28, 2023 2:27 PM [facility] 10-28-2023 Note Patient Outreach (NE TNAV) JOSE RAFAEL LOPEZ ([id number]) 1995 F Date Time Provider Department 10/28/23 BRENDA THORPE) NETNAV During your visit today, we recorded the [...] schedule this appointment? N/A Reason for Outreach [place] Payer: Payor: [place] / Plan: [facility] MEDICAID / Product Type: Medicaid / Care [...] and updated OB/PEDS field to patient's perferred mergers and acquisitions associate. Patient thanked me for calling her. OB/PEDS Patient Identified by Name and : YES, via phone Outreach Outcome/Action OB/PEDS field updated Did you use a PCP flex slot to schedule this appointment? N/A Navigation Signature: Brenda Galloway November 01, 2023 1:43 PM Allergies As of Date: 10/28/2023 (No Known Allergies) Date Reviewed: 10/26/2023 Reviewed by: Hari Longo LPN - Fully Assessed Reason for Visit: Population Health Navigation Outreach [3910] Cmt: OB/PEDS Prescriptions as of 11/01/2023 - famotidine (PEPCID) 20 mg tablet Take 1 tablet by mouth two times a day. - BIOTIN, BULK, MISC - VIT 2-GZXO-GUMGO-DHA ORAL Take by mouth. Problem List As Of Date 10/28/2023 Noted Resolved with care elsewhere, antepar*06/14/2023 History of depression [Z86.59] 06/14/2023 Family history of congenital heart defect [Z82.*06/14/2023 Family history of Down syndrome [Z82.79] 06/14/2023 Elevated glucose [R73.09] 08/24/2023 Encounter Status:Closed by BRENDA PONCE on 10/28/23 [facility] 10-13-2023 Note HNO ID: [id number] Author: MARY GAMBLE MD Service: ? Author [...] +HPV Depression/anxiety MEDICATIONS: BIOTIN, BULK, MISC VIT 0-LXLV-MVNEI-DHA ORAL Take by mouth. ALLERGIES: Allergies As [...] Window air conditioning Basement: Damp basement Bekah: Zvna-ev-oczm carpeting Dust mite controls: Dust mite controls [...] relatively mild. The patient may also take bhio-ehv-bfefnoj loratidine (Claritin) 10 mg, cetirizine (Zyrtec) 10 mg, levocetirizine (xyzal) 5 mg OR fexofenadine (Mia) 180 mg once daily as needed for itching, sneezing or runny nose. 3.) Discussed medication dosage, usage, side effects, and goals of treatment in detail. 4.) Follow-up in PRN - patient will r (more content not included)... [facility] 10-06-2023 Note HNO ID: [id number] Author: Deonna Redd APRN.MISBAH Service: ? Author Type: Wood Block Artist Type: Progress Notes Filed: 10/06/2023 4:17 PM [...] I and Reactive SIGNATURE: Deonna Redd APRN.CNM [facility] 09-21-2023 Miscellaneous Notes RR- VB No. LOF No. CTXS No. Movement: present. Other c/o: No. Medication list reviewed. Physical Exam See Flow Sheet Abd: soft, nontender, gravid Ext: edema: Trace A/P 32w6d Estimated Date of Delivery: 11/10/23 super norm. first reviewed tdap and rsv vaccines and recommendations. declines today f/u in 2 weeks or prn Maida Gallo M.D. documented in this encounter [facility] 09-21-2023 Instructions Brenda Richards MA - 09/21/2023 2:10 PM EST SEQUENTIAL SCREENINGS [facility] offers sequential screenings for women who [...] It will require an appointment with our field operations technician. This is not an ultrasound performed [...] the above symptoms, contact our office at [phone] and ask to speak with a nurse. After hours, you can call doctors registry at [phone] OR call [facility] at [phone] and ask to have the doctor acquisition advisor paged. If you consider this an emergency, dial 9-1-2 or go to your nearest emergency department. NEED HELP? Are you dealing with a violent or abusive relationship? Are you a victim of rape or sexual assult? Call [facility] (Monitor) 24 hour Crisis Hotline: 454.349.6222 or 882-228-7537. MANUAL Your Guide to a Healthy manual is now on-line. Visit [email or web address] to download your free copy documented in this encounter [facility] 09-19-2023 Miscellaneous Notes Patient notified and voiced understanding. Nicolette Tarango RN Please notify patient: Positive for yeast. Recommend Monistat 7 for treatment. Alisia Reyes APRN.TALON documented in this encounter [facility] 09-15-2023 Miscellaneous Notes S: Jose Rafael [...] nontender, S=D REVIEW OF SYSTEMS Expanded ROS: CADD TECHNICIAN: Negative for abnormal vaginal bleeding + vaginal [...] external genitalia normal, normal Bartholin's glands, urethra, Mccarthy's glands, no vulvar lesions, no cervical lesions, [...] 4 - Moderate documented in this encounter [facility] 09-15-2023 Instructions Ellie Obregon Ma - 09/15/2023 1:54 PM EST SEQUENTIAL SCREENINGS [facility] offers sequential screenings for women who [...] It will require an appointment with our field operations technician. This is not an ultrasound performed [...] the above symptoms, contact our office at [phone] and ask to speak with a nurse. After hours, you can call doctors registry at [phone] OR call [facility] at [phone] and ask to have the doctor acquisition advisor paged. If you consider this an emergency, dial 9-1-2 or go to your nearest emergency department. NEED HELP? Are you dealing with a violent or abusive relationship? Are you a victim of rape or sexual assult? Call [facility] ([facility] 24 hour Crisis Hotline: 983.552.2446 or 547-270-3543. MANUAL Your Guide to a Healthy manual is now on-line. Visit [email or web address] to download your free copy documented in this encounter [facility] 09-14-2023 Miscellaneous Notes Patient notified. Scheduled [...] Nicole Hannah RN documented in this encounter [facility] 08-25-2023 Note HNO ID: [id number] Author: Destiny Pfeiffer RN Service: ? Author Type: ? Type: Progress Notes Filed: 08/25/2023 8:01 AM Note Text: Breast pump RX faxed to [facility]. Destiny Pfeiffer RN [facility] 08-25-2023 History of Presen t illness Narrative Breast pump RX faxed to [facility] [facility]. Destiny Pfeiffer RN documented in this encounter [facility] 08-23-2023 Miscellaneous Notes DM-Pt doing well. [...] Swati Jasso MD documented in this encounter [facility] 08-23-2023 Instructions Gisela Cedillo Ma - 08/23/2023 8:02 AM EST SEQUENTIAL SCREENINGS [facility] offers sequential screenings for women who [...] It will require an appointment with our field operations technician. This is not an ultrasound performed [...] the above symptoms, contact our office at [phone] and ask to speak with a nurse. After hours, you can call doctors registry at [phone] OR call [facility] at [phone] and ask to have the doctor acquisition advisor paged. If you consider this an emergency, dial 9-0-9 or go to your nearest emergency department. NEED HELP? Are you dealing with a violent or abusive relationship? Are you a victim of rape or sexual assult? Call [facility] ([facility] 24 hour Crisis Hotline: 498.143.6519 or 609-704-1292. MANUAL Your Guide to a Healthy manual is now on-line. Visit [email or web address] to download your free copy documented in this encounter [facility] 08-02-2023 Miscellaneous Notes Jose Rafael Lopez [...] Deonna Redd APRN.CNM documented in this encounter [facility] 08-02-2023 Instructions Joey Black Cma - 08/02/2023 4:34 PM EDT SEQUENTIAL SCREENINGS [facility] offers sequential screenings for women who [...] It will require an appointment with our field operations technician. This is not an ultrasound performed [...] the above symptoms, contact our office at [phone] and ask to speak with a nurse. After hours, you can call doctors registry at [phone] OR call [facility] at [phone] and ask to have the doctor acquisition advisor paged. If you consider this an emergency, dial 9-1-1 or go to your nearest emergency department. NEED HELP? Are you dealing with a violent or abusive relationship? Are you a victim of rape or sexual assult? Call [facility] ([place]) 24 hour Crisis Hotline: 181.475.9567 or 108-926-4012. MANUAL Your Guide to a Healthy manual is now on-line. Visit [email or web address] to download your free copy documented in this encounter [facility] 07-07-2023 Miscellaneous Notes 1st risk assessment form submitted 07/07/23 Nevin Curtis RN documented in this encounter [facility] 07-04-2023 Note HNO ID: [id number] Author: Deonna Redd APRN.MISBAH Service: ? Author Type: Wood Block Artist Type: Progress Notes Filed: 07/04/2023 2:23 PM Note Text: INITIAL OB ASSESSMENT OB Provider: Deonna Redd APRN CNM HPI: Jose Rafael is a 27 year old White here to establish Obstetrical Care. Patient's last menstrual period was 02/15/2023 (exact date). from OB Dating Form. 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 No current facility-administered [...] BREAST: deferred ABDOMEN: (more content not included)... [facility] 07-04-2023 Miscellaneous Notes Patient is a at 19.6 weeks gestation for NOB. She is a transfer of care from [facility]. See progress note. Deonna Redd APRN.CNM documented in this encounter [facility] 07-04-2023 History of Presen t illness Narrative Images from the original note were not included. INITIAL OB ASSESSMENT OB Provider: Deonna Redd APRN CNM HPI: Jose Rafael is a 27 year old White here to establish Obstetrical Care. Patient's last menstrual period was 02/15/2023 (exact date). from OB Dating Form. 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 No current facility-administered [...] no positive findings documented. SBIRT Jose Rafael Lopez was given the 4P's screening tool. Jose [...] Your guide to a health and the Hydrocrane Operator. Discussed aneuploidy and carrier screening. Regarding aneuploidy [...] mother- unsure of reaction Reviewed midwifery and wind farm designer services that are available. Follow up in 4 weeks or sooner prn. Deonna Redd APRN.CNM documented in this encounter [facility] 07-04-2023 Instructions Joey Black Cma - 07/04/2023 12:59 PM EDT Please select the following link to access the [facility] Your Guide to a Healthy . [email or web address] documented in this encounter [facility] 06-14-2023 Note HNO ID: [id number] Author: Carol Taylor RN Service: ? 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 No current facility-administered medications for this visit. Allergies As of Date: 06/14/2023 Allergen Noted Reaction AMOXICILLIN 06/14/2023 Other: See Comments reviewed none Does patient have penicillin allergy: Yes, plan for allergy testing. [facility] 06-09-2023 Note HNO ID: [id number] Author: Destiny Pfeiffer RN Service: ? Author Type: ? Type: Progress Notes Filed: 06/09/2023 10:59 AM Note Text: Received records from [facility]. [employer] updated. Records placed in [facility] mailbox. [facility] on 06/14/23. Destiny Pfeiffer RN [facility] 06-09-2023 History of Presen t illness Narrative Received records from [facility]. [employer] updated. Records placed in [facility] mailbox. [facility] on 06/14/23. Destiny Pfeiffer RN documented in this encounter [facility] 04-22-2023 History of Presen t illness Narrative Subjective Patient ID: Jose Rafael Lopez is a 27 y.o. female who presents for PHYSICAL (WORK PHYSICAL ). HPI: Presents today for WORK PHYSICAL. 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 NO NEW COMPLAINTS Visit Vitals BP 118/74 [...] PROCEDURE REFERRAL PRN documented in this encounter [facility] Work Phone: documented in this encounter [facility] Work Phone: Evaluation note* Diagnosis Encounter for supervision of normal first in second trimester- Primary Supervision of normal first with care elsewhere, antepartum [facility] Diagnosis 25 weeks gestation of - Primary state, incidental with care elsewhere, antepartum [facility]* Diagnosis with care elsewhere in third trimester- Primary 28 weeks gestation of state, incidental [facility]* Diagnosis Encounter for supervision of normal first in third trimester- Primary Supervision of normal first 32 weeks gestation of state, incidental with care elsewhere in third trimester Vaginal discharge during in third trimester Vaginal irritation Unspecified noninflammatory disorder of vagina Penicillin allergy Personal history of allergy to penicillin [facility] Diagnosis 32 weeks gestation of - Primary state, incidental Encounter for supervision of normal first in third trimester Supervision of normal first [facility] Diagnosis Encounter for supervision of normal first in third trimester- Primary Supervision of normal first 40 weeks gestation of state, incidental Elevated blood pressure reading without diagnosis of hypertension [facility] N[facility]* Presents today [...] URGENT CARE * HPV- FOLLOWS WITH ONCOLOGY [facility] Work Phone: History of Present illness Narrative* Presents today for [facility] AND US NECK F/U. SHE BROUGHT A PAPER TO BE FILLED OUT FOR HER COLLEGE ([place] [employer] [facility]) TO GIVE HER MORE TIME FOR [...] MANAGEMENT. SHE USES CALMING TECHNIQUES WHICH HELPS [facility] Work Phone: Reason for referral (narrative)* Diagnostic Procedure Only (Routine) - Pending Review Specialty Diagnoses / Procedures Referred By Angela pugh Referred To Contact [facility] Diagnoses 28 weeks gestation of with care elsewhere in third trimester Procedures OBSTETRIC ULTRASOUND WHI US PREG UTERUS AFTER 1ST TRIMEST GESTATION Swati Mendoza MD [address] [place] [address] [facility] [address] [place] [address] Referral ID Status Reason Start Date Expiration Date Visits Requested Visits Authorized [id number] Pending Review Auto-Generat ed Referral 3 08/22/2024 1 1 [facility] Summary Purpose Family History No Family [...] Date Diagnosed Date [facility] - [facility] 07/04/2023 [place] - [place] 07/04/2023 Problem Noted Date Diagnosed Date [facility] - [facility] 07/04/2023 Education - [place] 07/04/2023 Problem Noted Date Diagnosed Date [facility] - [facility] 07/04/2023 Education - [place] 07/04/2023 Problem Noted Date Diagnosed Date [facility] - [facility] 07/04/2023 Education - [place] 07/04/2023 Problem Noted Date Diagnosed Date [facility] - [facility] 07/04/2023 Education - [place] 07/04/2023 Problem Noted Date Diagnosed Date [facility] - [facility] 07/04/2023 Education - [place] 07/04/2023 Problem Noted Date Diagnosed Date [facility] - [facility] 07/04/2023 Education - [place] 07/04/2023 Problem Noted Date Diagnosed Date [facility] - [facility] 07/04/2023 Education - [place] 07/04/2023 Medications Administered Section Administered Medications Medication Order MAR Action Action Date Dose Rate Site tuberculin skin test (TST-PPD), purified protein derivative, intradermal Given 04/01/2022 Additional Source Comments INFORMATION SOURCE (unrecogn ized section and content) DATE CREATED AUTHOR AUTHOR'S ORGANIZ ATION 07/10/2021 [employer] DATE CREATED AUTHOR AUTHOR'S ORGANIZ ATION 07/15/2021 [facility] DATE CREATED AUTHOR AUTHOR'S ORGANIZ ATION 07/17/2022 [facility] [place] DATE CREATED AUTHOR AUTHOR'S ORGANIZ ATION 11/13/2023 [facility] Reason for Visit (unrecogniz ed section and content) Reason Comments Received Outside Medical Records Reason Comments PRAF Reason Onset Date Comments Care 08/02/2023 Reason Onset Date Comments Care 08/23/2023 Reason Comments Breast Pump Reason Comments Patient Question Reason Onset Date Comments Care 09/15/2023 Reason Comments Results Reason Onset Date Comments Care 09/21/2023 Reason Onset Date Comments Care 11/11/2023 Care Teams (unrecognized sec tion and content) Source Comments (unrecognize d section and content) In the event this informatio n is protected by the Federal Confidentiality of Alcohol and Drug Abuse Patient Records regulations: The Federal rules restrict any use of the information to criminally investigate or prosecute any alcohol or drug abuse patient.[facility] Hospital[facility] the event this information is protected by the Federal Confidentiality of Alcohol and Drug Abuse Patient Records regulations: The Federal rules restrict any use of the information to criminally investigate or prosecute any alcohol or drug abuse patient.[facility] HospitalIn the event this information is protected by the Federal Confidentiality of Alcohol and Drug Abuse Patient Records regulations: The Federal rules restrict any use of the information to criminally investigate or prosecute any alcohol or drug abuse patient.[facility] HospitalIn the event this information is protected by the Federal Confidentiality of Alcohol and Drug Abuse Patient Records regulations: The Federal rules restrict any use of the information to criminally investigate or prosecute any alcohol or drug abuse patient.[facility] HospitalIn the event this information is protected by the Federal Confidentiality of Alcohol and Drug Abuse Patient Records regulations: The Federal rules restrict any use of the information to criminally investigate or prosecute any alcohol or drug abuse patient.[facility] HospitalIn the event this information is protected by the Federal Confidentiality of Alcohol and Drug Abuse Patient Records regulations: The Federal rules restrict any use of the information to criminally investigate or prosecute any alcohol or drug abuse patient.[facility] HospitalIn the event this information is protected by the Federal Confidentiality of Alcohol and Drug Abuse Patient Records regulations: The Federal rules restrict any use of the information to criminally investigate or prosecute any alcohol or drug abuse patient.[facility] HospitalIn the event this information is protected by the Federal Confidentiality of Alcohol and Drug Abuse Patient Records regulations: The Federal rules restrict any use of the information to criminally investigate or prosecute any alcohol or drug abuse patient.[facility] HospitalIn the event this information is protected by the Federal Confidentiality of Alcohol and Drug Abuse Patient Records regulations: The Federal rules restrict any use of the information to criminally investigate or prosecute any alcohol or drug abuse patient.[facility] HospitalIn the event this information is protected by the Federal Confidentiality of Alcohol and Drug Abuse Patient Records regulations: The Federal rules restrict any use of the information to criminally investigate or prosecute any alcohol or drug abuse patient.[facility] HospitalIn the event this information is protected by the Federal Confidentiality of Alcohol and Drug Abuse Patient Records regulations: The Federal rules restrict any use of the information to criminally investigate or prosecute any alcohol or drug abuse patient.[facility] FOR RECORDS PERTAINING TO PATIENTS WHO [...] BE BASED ON THE PRIMARY CLINICAL RECORDS. [facility] Pet Insurance Quotes [facility]. provides no warranty or guarantee of the accuracy or completeness of information in this document.
--- NOTE | 2023-11-15 20:15 | PCM.HP.OB ---
HPI - General General Date of Admission: 11/15/23 HPI Narrative JOSE RAFAEL LOPEZ, is a 28 F at 40.5 weeks gestation who presents for scheduled induction of labor. Patient has a history of anxiety and depression. has been uncomplicated. Maternal Data Information ORESTES Calculator Estimated Delivery Date Method Current WG Current Estimate 11/10/23 Manual 40w 5d PFSH PFSH Medical History Anxiety HPV (human papilloma virus) infection Home Medications vit no.95-ferrous fumarate 28 mg-folic acid 800 mcg tablet () 1 tab PO DAILY 11/03/23 [History Last Taken Unknown] Surgical History History of surgery Social History Smoking Status: Never smoker NST FHR Rate Baby A Baseline: 140 Variability:: Moderate Accelerations:: 15 x 15 Decelerations:: None NST Reactive:: Yes FHR Category:: Category I Uterine Activity:: irritability ROS Eyes Eyes: Denies blurry vision, change in vision or spots in vision ENT HEENT: Denies dizziness or headache(s) Cardiovascular Cardiovascular: Denies abdominal pain, chest pain or dyspnea Respiratory/Chest Respiratory/Chest: Denies cough, dyspnea, shortness of breath at rest or shortness of breath with exertion Gastrointestinal Gastrointestinal: Denies abdominal pain, diarrhea or vomiting Genitourinary Genitourinary: Denies change in urinary stream, difficulty urinating or dysuria Musculoskeletal Musculoskeletal: Reports none Integumentary Integumentary: Denies rash Neurologic Neurologic: Denies dizziness, headache(s), memory loss or weakness Psychiatric Psychiatric: Reports none Vital Signs Vital Signs Vital Signs: 11/15/23 19:33 11/15/23 19:33 11/15/23 19:33 Pulse Rate 93 Blood Pressure 133/72 H BP Systolic 133 BP Diastolic 72 Pulse Ox 97 11/15/23 19:38 11/15/23 19:38 11/15/23 19:46 Pulse Rate 103 H 102 H Blood Pressure BP Systolic BP Diastolic Pulse Ox 97 11/15/23 19:46 Pulse Rate Blood Pressure BP Systolic BP Diastolic Pulse Ox 97 Physical Exam Const alert, oriented x3 and no apparent distress General Appearance: cooperative Orientation / Consciousness: awake Exam Limitations: no limitations HEENT normocephalic Head and Scalp: normal to inspection Eyes General Eye: normal appearance of both eyes Neck full ROM and no lymphadenopathy Lymph Lymphatic: no lymphadenopathy noted Chest inspection of chest normal Resp normal respiratory effort, normal air movement and clear to auscultation bilaterally Effort and Inspection: able to speak in complete sentences and symmetric chest movement Cardio regular rate and regular rhythm GI normal to inspection, nondistended, normoactive bowel sounds Manual OB Exam: presentation cephalic, dilated 4, effaced 80 and station 0 Amniotic Fluid: clear amniotic fluid Back/Spine normal ROM Extremity full ROM and no calf tenderness Skin no rashes or lesions noted General Skin Exam: no breakdown Neuro oriented x3 and CN's II-XII intact bilaterally Psych mental status grossly normal and thought process normal Labs Labs Labs: Blood Type A POSITIVE Antibody Screen Pending Hct 32.6 % (37-47) L Hgb 10.9 g/dL (12.0-15.0) L Syphilis Total Ab Non-reactive VZV IgG Antibody 1560 index (Immune >165) Rubella IgG Antibody Reactive (Nonreactive) Hep Bs Antigen Non-Reactive (Nonreactive) Hepatitis C Antibody Non-Reactive (Nonreactive) HIV 1&2 Antibody Non-Reactive (Nonreactive) Miscellaneous Test GBS NEGATIVE Assessment & Plan (1) 40 weeks gestation of : (2) Encounter for induction of labor: (3) History of anxiety: (4) History of depression: PLAN: Plan Admit to labor and delivery Routine labs Start IV and run fluids per orders GBS negative CE- 1/60/-2 Neumann bulb inserted without difficulty and filled with 30 cc N/S Cytotec 25 mcg PO x 1 dose now- will reevaluate prior to second dose Dr. Metz notified of admission and is collaborating physician
[2023-11-15] MEDS: miSOPROStol 25 MCG TABLET PO (20:47)
[2023-11-15 20:57] LABS: Syphilis Antibodies Non-reactive
[2023-11-16] VITALS (59 sets, daily range): BP systolic 106–148; BP diastolic 55–77; PULSE 74–173; RESP 16; TEMP 36.4–38.1; O2SAT 88–100
[2023-11-16] MEDS: LACTATED RINGERS 500 ML 999 ML IV ×2 (01:05→05:44)
[2023-11-16] MEDS: fentaNYL-bupivacaine (epidural) 100 ML BAG EPIDURAL (06:42)
--- NOTE | 2023-11-16 07:24 | PCM.PN.CNM ---
Subjective Subjective Patient seen at bedside. Comfortable with epidural. Objective Data Objective Data Vital Signs: Vital Signs Temp Pulse BP Pulse Ox 97.6 F L 83 126/63 H 100 11/16/23 05:50 11/16/23 07:21 11/16/23 07:21 11/16/23 07:14 Weight: 202 lb 9.6 oz Body Mass Index (BMI) 31.7 Intake & Output: Intake and Output for Last 24 Hours 11/14/23 11/15/23 11/16/23 23:59 23:59 23:59 Intake Total 1020.83 / 1020.83 Output Total 50 / 50 350 / 350 Balance -50 / -50 670.83 / 670.83 Lab / Micro Data 11/15/23 19:45 Labs: Laboratory Results - last 24 hr 11/15/23 19:45: WBC 11.6 H, RBC 3.77 L, Hgb 10.9 L, Hct 32.6 L, MCV 86.5, MCH 28.9, MCHC 33.4, RDW Std Deviation 38.8, RDW Coeff of [place] 12.3, Plt Count 284, MPV 10.6, Immature Gran % (Auto) 0.300, Neut % (Auto) 75.6 H, Lymph % (Auto) 16.2 L, [place] % (Auto) 6.9, Eos % (Auto) 0.8, Baso % (Auto) 0.2, Absolute Neuts (auto) 8.8 H, Absolute Lymphs (auto) 1.88, Nucleated RBC % 0, Syphilis Total Ab Non-reactive, Blood Type A POSITIVE, Antibody Screen NEGATIVE ROS Eyes Eyes: Denies blurry vision Cardiovascular Cardiovascular: Reports none; Denies chest pain at rest, chest pain with activity or dizziness Respiratory/Chest Respiratory/Chest: Denies cough or dyspnea Gastrointestinal Gastrointestinal: Reports none and other; Denies diarrhea or vomiting Genitourinary Genitourinary: Denies dysuria Musculoskeletal Musculoskeletal: Reports none Integumentary Integumentary: Reports none; Denies rash Neurologic Neurologic: Denies dizziness, headache(s) or other visual disturbances Psychiatric Psychiatric: Reports none NST FHR Rate Baby A Baseline: 130 Variability:: Moderate Accelerations:: 15 x 15 Decelerations:: None NST Reactive:: Yes Uterine Activity:: 2-3 minutes, palpate moderate and relaxed in between Assessment & Plan (1) 40 weeks gestation of : (2) Encounter for induction of labor: (3) History of anxiety: (4) History of depression: (5) Spontaneous rupture of amniotic membranes: PLAN: Plan SROM at 0412 for clear fluid CE 4.5/70/-2 Pitocin at 4 mu/min- difficulty increasing due occasional periods of tachysystole Currently Cat. 1 tracing Continue present management Anticipate
[2023-11-16] MEDS: Lactated Ringers 1,000 ML 200 ML IV (08:46)
[2023-11-16] MEDS: Oxytocin 15 Units/NS 250ml 15 UNITS/250 ML IV.SOLN 2 UNITS IV (10:55)
[2023-11-16] MEDS: Ondansetron 4 MG/2 ML Vial IV (11:22)
--- NOTE | 2023-11-16 13:06 | EX.PCM.OBRPT ---
Assessment & Plan (1) (spontaneous vaginal delivery): (2) Shoulder dystocia during labor and delivery: (3) Laceration, obstetrical, second degree: (4) Compound presentation of fetus: Maternal Data Information ORESTES Calculator Estimated Delivery Date Method Current WG Current Estimate 11/10/23 Manual 40w 6d Details Operative Information Date of Procedure: 11/16/23 Vaginal Delivery Maternal Presentation Maternal Presentation: Elective Induction Maternal Presentation: for elective induction of labor Type of Induction: Pitocin, Neumann Bulb and Cytotec Operative Information Date of Procedure: 11/16/23 Pre-Operative Diagnosis: Term gestation, Induction of labor Post-Operative Diagnosis: Same, Live male infant Surgery / Procedure Performed: Spontaneous Vaginal Delivery Type of Anesthesia: Epidural Drain: Neumann to straight drain Estimated Blood Loss: 300 Time of Delivery: 12:32 Findings Description of Procedure: Called to patient's room for delivery. With good maternal effort, head delivered with noted hand/arm next to face. Anterior shoulder not forthcoming. Anibal maneuver then suprapubic pressure applied. Hand inserted and removal of anterior arm followed by shoulder and remainder of infant body. Dystocia lasted 30 seconds. Nuchal cord x1 loose around neck and easily reduced. Cord clamped and infant handed to awaiting nursing staff due to poor tone and weak cry. Pitocin started for active management of the third stage of labor. Placenta delivered spontaneously and intact. Fundus firm 2 below U. Perineal with second degree laceration repaired in usual fashion with 3-0 Vicryl rapid. Hemostasis obtained. EBL 300 cc. APGARS 7/9 Patient and infant bonding well at this time. Dr. Harrington notified of delivery. Gloria Herzog MS3 present for delivery and repair. Presentation: Vertex and ISABEL (Compound presentation) Amniotic Membrane Rupture Type: Spontaneous Time of Membrane Rupture: 411 Amniotic Fluid Description: Clear Placental Delivery Description: Spontaneous Placenta Disposition: [facility] Cord Vessel Description: 3 Vessels Cord Entanglement: Around neck x 1, loose Nuchal Cord Compression: Without compression A Gender: Male (1 minute): 7 (5 minute): 9 Post Vaginal Delivery Medications Given After Delivery: IV Pitocin Episiotomy Description: None Laceration: 2nd degree Complication Complications: None
[2023-11-16] MEDS: Oxytocin 15 Units/NS 250ml 15 UNITS/250 ML IV.SOLN 83 UNITS IV (13:45)
[2023-11-16] MEDS: Naproxen 500 MG Tablet PO (15:26)
[2023-11-17] VITALS (11 sets, daily range): BP systolic 107–134; BP diastolic 52–69; PULSE 77–89; RESP 14–16; TEMP 36.5–37; O2SAT 97–99
[2023-11-17] MEDS: Naproxen 500 MG Tablet PO ×2 (07:44→15:43)
[2023-11-17] MEDS: Senna/Docusate Sodium 1 Tablet PO ×2 (11:16→11:32)
--- NOTE | 2023-11-17 13:28 | PCM.PN.OB ---
Subjective Subjective Patient is doing well and offers no complaints. She denies headaches or vision changes. Pain is well-controlled. She is ambulating and voiding without difficulty. Tolerating a regular diet. Lochia is normal. She is working on breast-feeding. She denies chest pain, shortness of breath, leg pain. Objective Data Objective Data Vital Signs: Vital Signs Temp Pulse Resp BP Pulse Ox O2 Del Method 98.1 F 78 16 131/60 H 98 Room Air 11/17/23 11:25 11/17/23 11:25 11/17/23 11:25 11/17/23 11:25 11/17/23 04:00 11/17/23 04:00 Oxygen Delivery Method Room Air Weight: 202 lb 9.6 oz Body Mass Index (BMI) 31.7 Intake & Output: Intake and Output for Last 24 Hours 11/15/23 11/16/23 11/17/23 23:59 23:59 23:59 Intake Total 3500.00 / 3500.00 Output Total 50 / 50 2550 / 2550 800 / 800 Balance -50 / -50 950.00 / 950.00 -800 / -800 Lab / Micro Data 11/15/23 19:45 Physical Exam Const alert and no apparent distress General Appearance: comfortable HEENT normocephalic Resp normal respiratory effort GI soft to palpation, non-tender and non-distended Extremity no calf tenderness Extremity Narrative: 1+ pitting edema Assessment & Plan (1) Laceration, obstetrical, second degree: (2) (spontaneous vaginal delivery): PLAN: Patient is day 1 from a vaginal delivery. She is doing well. Blood pressures slightly elevated 130's/60's, but no symptoms of preeclampsia. Continue to closely monitor blood pressures, discussed with patient to notify us of any preeclampsia symptoms. Routine care and anticipate discharge tomorrow.
--- NOTE | 2023-11-17 16:53 | CASEMGMT ---
Social Work Assessment Labor and Delivery Unit Patient Address:[address] [place] [address] [address] [place] [address] Phone number: [phone] Date of Referral: 11/16/23 Time of Referral:? [id number] Referred By: Deonna Martinez Date of Intervention: ??11/17/23 Time of Intervention:?153 Reason for Referral:? hx anxiety Sw completed chart review and acknowledges social work consult due to maternal mental health history of anxiety. Sw presented to bedside and introduced self to mother of baby (MOB- Pily) and father of baby (FOB- Joe). Sw explained reason for sw involvement and completed psychosocial assessment. History obtained from: medical records, MOB and FOB Household composition: Currently residing in the family home is MOB, FOB and now baby. Parents report that there is no concerns with their housing, it is safe and secure. Patient's parent/guardian status:? ?MOB states that she and PARAMJIT have been together for 3.5 years. MOB states that they have known each other for a long time, meeting through mutual friends. MOB states that they dated a long time ago, but then she moved so they broke up. When MOB moved back they got back together. MOB denies any concerns of domestic violence or intimate partner violence. Medical History: ?ANUP is 28 year old female who is 1, para 0- now 1 following labor and delivery of . ANUP received routine care during , beginning with [facility] and then transitioning to [facility]. ANUP presented to hospital in labor and delivered baby on 11/16/23 via vaginal delivery. Baby boy, named Mauricio, was born weighing 9lb 10oz and his apgars were 7 and 9 at one and five minutes of life respectfully. ANUP states that she is still working on establishing breast feeding and decided to stay admitted one more night to get help. MOB states that baby will be followed by Dr. Angelo. Educational Status:? Both parents graduated from high school and obtained college degrees. FOB has a bachelors degree and ANUP has an associates degree. No concerns with reading, learning or comprehension. 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 MOB states that eventually she will return to work, but not until she is ready and baby is older. Supplies:?? Parents have obtained all necessary baby supplies, including: car seat, safe sleep space, clothes, diapers and wipes. Childcare/Caregiver(s):? MOB will be the primary caregiver along with FOB when he is not at work. MOB states that if parents need assistance with childcare they have grandparents that will be able to help. Transportation:?? Both parents have their drivers license and reliable means of transportation. No barriers at this time. Programs/Agencies Involved: ?Maternal anna works for the [facility] and helped parents with education and supplies. MOB is also connected to insurance through [employer] ([employer]). Children Services/Legal Issues:??? No history of involvement, no issues or concerns warranting referral at this time. Behavioral Health Issues: ??Mental Health History:??FOB denies mental health diagnoses. MOB states that she has been diagnosed with anxiety and depression. MOB states that having a consistent routine and schedule helps her anxiety. MOB states that she is not prescribed medication, but does have several healthy coping skills that she utilizes daily. ? Substance Use History:MOB denies substance use prior to and during . ?? Family History: Parents deny family history of addiction/ substance use disorders or significant mental health diagnoses such as bipolar or schizophrenia.? Drug Screens: ??No drug screens observed during chart review. Family/Social Stressors:? Parents deny any issues or concerns at this time. Support Systems: MOB states that both sets of grandparents are supportive. Depression/Shaken Baby/Safe Sleeping:? Sw educated parents and provided literature on signs and symptoms of baby blues and depression/ anxiety to be on the look out for. Parents express understanding. Sw educated parents on shaken baby prevention and ABCs of safe sleep. Parents also learned these things during their education provided at the [facility]. ASSESSMENT:? MOB and baby admitted following labor and delivery. MOB and FOB talkative and open to answer questions during assessment. Parents have supports and all necessary supplies. Parents observed providing loving and carting hands on care of . Parents receptive to involvement and support. PLAN:? MOB and baby to be discharged when medically ready. ?No other services requested or indicated. Ricky Reddy, METAL HANGING SUPERVISOR, BLAST FURNACE OPERATOR
[2023-11-18 02:54] VITALS: BP 118/59; PULSE 78; RESP 16; TEMP 36.6; O2SAT 95
[2023-11-18 02:55] VITALS: O2SAT 95
[2023-11-18 02:56] VITALS: BP 118/59; PULSE 78
[2023-11-18 07:58] VITALS: BP 118/58; PULSE 88
[2023-11-18 08:00] VITALS: BP 118/58; PULSE 88; RESP 16; TEMP 36.7
--- NOTE | 2023-11-18 11:24 | PCM.PN.OB ---
Subjective Subjective Pain well-controlled. Average lochia. No bowel movement. Ambulating and tolerating regular diet. Objective Data Objective Data Vital Signs: Vital Signs Temp Pulse Resp BP Pulse Ox O2 Del Method 98.1 F 88 16 118/58 L 95 Room Air 11/18/23 08:00 11/18/23 08:00 11/18/23 08:00 11/18/23 08:00 11/18/23 02:55 11/18/23 02:54 Oxygen Delivery Method Room Air Weight: 91.898 kg Body Mass Index (BMI) 31.7 Intake & Output: Intake and Output for Last 24 Hours 11/16/23 11/17/23 11/18/23 23:59 23:59 23:59 Intake Total 3500.00 / 3500.00 Output Total 2550 / 2550 1700 / 1700 Balance 950.00 / 950.00 -1700 / -1700 Lab / Micro Data 11/15/23 19:45 Physical Exam Const alert and no apparent distress Narrative: Fundus firm, below umbilicus. Assessment & Plan (1) (spontaneous vaginal delivery): PLAN: day #1 status post vaginal delivery. Patient and are doing well. Working on breast-feeding. Desires discharge home today with routine instructions.
--- NOTE | 2023-11-18 11:25 | PCM.DC.SUM ---
Providers Date of Admission: 11/15/23 Date of Discharge: 11/18/23 Primary Care Physician: [facility] Primary Care Phys Reason For Visit: VAGINAL DELIVERY Diagnosis Discharge Diagnosis (1) (spontaneous vaginal delivery): Status: Acute Code(s): O80 - Encounter for full-term uncomplicated delivery Plan: day #1 status post vaginal delivery. Patient and are doing well. Working on breast-feeding. Desires discharge home today with routine instructions. Medications at Discharge Home Medications vit no.95-ferrous fumarate 28 mg-folic acid 800 mcg tablet () 1 tab PO DAILY 11/03/23 Hospital Course Operations None Procedures None Summary of Care Provided Minutes Spent on Discharge: 18 Hospital Course: 28-year-old Cristi parous female admitted at 40-5/7 weeks gestation for induction of labor. She was admitted on 11/16/2023 Cytotec Neumann and Pitocin induction of labor. She hadAnd underwent a vaginal delivery on 11/17/2023. There was a shoulder dystocia. A second-degree laceration that was repaired. On day #1 she was ambulating urinating tolerating regular diet. She desired discharge home. She was working on breast-feeding. She is to follow-up in the office within 1 weeks and at 6 weeks or as needed. Patient is comfortable with this plan. 18 minutes spent on rounds and discharging patiient today. Weight / BMI Weight Weight: 91.898 kg Body Mass Index (BMI) 31.7 ABG / Lab / Microbiology Data 11/15/23 19:45 D/C Instructions May resume sexual activity in: 6 weeks Please Follow Up With: Nida Harrington MD When: Follow up with our office in 1-2 and 6 weeks or as needed. [phone] Meaningful Use Info Meaningful Use Diagnoses (Choose all that apply): None applicable Discharge Plan Admission Admit Date/Time: 11/15/23 19:05 Primary Reason for Your Visit: Vaginal delivery Attending Provider: Deonna Martinez Primary Care Provider: Care PhysicianCoty Primary Discharge Orders/Prescriptions Prescriptions: No Action PNV cmb#95-ferrous fumarate-FA [] 28 mg iron- 800 mcg tablet 1 tab PO DAILY Referrals / Follow Up: Care Physician,Coty Primary [Primary Care Provider] - Disposition Disposition (needs filled in before D/C Order can be placed): Home, Self Care
== END 2023-11-18 13:55 | disposition home or self-care (01) | DRG 560 ==
PROVIDERS: Admitting Provider Advanced Practice Midwife; Referring Provider Advanced Practice Midwife; Visit Provider Advanced Practice Midwife
DX: O48.0 Post-term pregnancy (principal); Z37.0 Single live birth; R03.0 Elevated blood-pressure reading, without diagnosis of hypertension; O66.0 Obstructed labor due to shoulder dystocia; O69.81X0 Labor and delivery complicated by cord around neck, without compression, not applicable or unspecified; O70.1 Second degree perineal laceration during delivery; Z3A.40 40 weeks gestation of pregnancy; O99.893 Other specified diseases and conditions complicating puerperium
CPT/HCPCS: 59025; 59050; 85025; 86780; 86850; 86900; 86901; 99221; J7120; G0378; J2405